=== PATIENT | male | born 1945 | race Caucasian/White ===

== ENCOUNTER → 2016-11-12 | Outpatient (CLI) | payer MEDICARE ==
[~2016-11-12] MED LIST: ACETAMINOPHEN; ALPRAZOLAM0.25 MG; AMLODIPINE5 MG PO; ASPIRIN81 M1; ATENOLOL25 MG; CELEXA20 MG; CRESTOR40 MG; DOXYCYCLINE100 M3 PO; GABAPENTIN300 MG; LISINOPRIL/HCTZ1 TA3 PO; MULTIVITAMIN1 CTB; OMEPRAZOLE20 MG; PREDNICOT20 MG PO; PREDNISONE10 MG PO; PROVENTIL0.09 MG/A1 INH; RANITIDINE HCL150 M1 PO; WARFARIN4 MG PO
== END | disposition home or self-care (01) ==
LOC: CARD 01:05
DX: I08.1 Rheumatic disorders of both mitral and tricuspid valves (principal); I25.10 Atherosclerotic heart disease of native coronary artery without angina pectoris; I48.92 Unspecified atrial flutter

== ENCOUNTER 2017-01-11 11:13 | Inpatient (IN) | payer OTHER, MEDICARE ==
[~2017-01-11] VITALS: Ht 172.7 cm; Wt 99.1 kg
[~2017-01-11 11:13] MED LIST changes: -ATENOLOL25 MG; +ATENOLOL25 MG PO
[2017-01-11 11:41] VITALS: BP 136/82
[2017-01-11 11:54] LABS: BILIRUBIN NEGATIVE (NEGATIVE); BLOOD NEGATIVE (NEGATIVE); CLARITY CLEAR (CLEAR); COLOR YELLOW (YELLOW); GLUCOSE NEGATIVE (NEGATIVE); KETONE NEGATIVE (NEGATIVE); LEUKO ESTERASE NEGATIVE (NEGATIVE); NITRITE NEGATIVE (NEGATIVE); SPECIFIC GRAVITY <= 1.005 (1.005-1.030); UROBILINOGEN 0.2 E.U./dl (0.2-1.0)
[2017-01-11 12:04] LABS: WBC 0-2 wbc/hpf (0-5)
[2017-01-11 12:23] LABS: BASO # 0.1 10*3/uL (0.0-0.1); BASO % 0.6 % (0.0-1.0); EOS # 0.4 10*3/uL (0.0-0.4); EOS % 3.7 % (1.0-4.0); HEMATOCRIT 38.9 % (42.0-52.0); HEMOGLOBIN 13.3 g/dl (14.0-18.0); LYMPH # 1.3 10*3/uL (1.3-4.4); MEAN CELL VOLUME 91.3 fl (80.0-94.0); MEAN CORPUSCULAR HGB 31.2 pg (27.0-31.0); MEAN CORPUSCULAR HGB CONC 34.2 g/dl (33.0-37.0); MEAN PLATELET VOLUME 9.3 fl (9.6-12.3); MONO # 1.2 10*3/uL (0.1-1.0); MONO % 13.1 % (3.0-9.0); NEUT # 6.4 10*3/uL (2.3-7.9); PLATELET COUNT AUTOMATED 204 10*3/uL (130-400); RED BLOOD COUNT 4.26 10*6/uL (4.50-5.90); RED CELL DISTRI WIDTH 13.2 % (0-14.5); WHITE BLOOD COUNT 9.4 10*3/uL (4.8-10.8)
[2017-01-11 12:32] LABS: ACT PARTIAL THROMBO TIME 34.4 SECONDS (20.8-31.5); INTERNATIONAL NORM RATIO 2.5 (2.0-3.5)
[2017-01-11 12:45] LABS: ALBUMIN 3.5 gm/dl (3.1-4.5); ALKALINE PHOSPHATASE 93 U/L (45-117); BUN 14 mg/dl (7-24); CHLORIDE 104 mmol/L (98-107); CREATININE 0.85 mg/dL (0.70-1.30); LIPASE 128 U/L (73-393); MAGNESIUM 2.1 mg/dL (1.5-2.1); SGOT/AST 19 IU/L (3-35); SGPT/ALT 27 U/L (12-78); SODIUM 137 mmol/L (136-145); TOTAL PROTEIN 7.4 gm/dL (6.4-8.2)
[2017-01-11 12:48] LABS: TROPONIN I < 0.015 ng/ml (<0.045)
--- NOTE | 2017-01-11 13:02 | NUR ---
REPORT CALLED. PENDINGTRANSPORT C/T PATIENT HAVING A CT ORDERED STAT. NURSE NOTFIED.
--- NOTE | 2017-01-11 14:00 | NUR ---
A 71, admitted to , under the services of SHANE Jules DO with a diagnosis of PNEUMONITIS,DYSPNEA ON EXERTION AND HEMOPTYSIS. Chief complaint is SHORTNES OF BREATH. Patient arrived via bed from ER. Monitor applied. Initial assessment completed. Vital signs taken and recorded. SHANE JULES DO notified of admission to the unit. Orders received. See assessment for past medical history, medications and allergies. Patient and/or family oriented to unit. [facility] visitation policy reviewed. Clothing/patient valuable form completed. ASSESSMENT COMPLETE. SKIN INTACT WITH NO WOUNDS. PT DECLINES FLU SHOT THIS VISIT. PNEUMONIA VACCINATION CURRENT. HOME MEDICATIONS VERIFIED WITH LIST PROVIDED BY PATIENT FROM [facility]. WILL NOTIFY DR HOFFMAN. KAR PHILLIPS
[2017-01-11] MEDS ORDERED: LOPRESSOR25 MG PO (14:06)
--- NOTE | 2017-01-11 14:55 | NUR ---
SPOKE TO DR PAPPAS AND INFORMED HIM THAT PATIENTS HOME MEDICATIONS ARE VERIFIED.
[2017-01-11 16:00] VITALS: BP 144/88
--- NOTE | 2017-01-11 19:50 | NUR ---
PT. AWAKE, ALERT AND ORIENTED X3. PT. IN BED AT THIS TIME. PT. CURRENTLY DENIES CP, SOB, PAIN. CALL LIGHT WITHIN REACH, BED IN LOWEST POSITION, WHEELS LOCKED. SEE SHIFT ASSESSMENT.
[2017-01-11 20:07] VITALS: BP 144/70
[2017-01-12] VITALS: BP 134/65
--- NOTE | 2017-01-12 06:03 | NUR ---
PT. WAS FEELING "JITTERY" PRIOR TO SOLU-MEDROL ADM. PT. IS PRE-DIABETIC, CHECKED PTS. BG. BG READING 242, NOTIFIED DR. SINGH AT THIS TIME. DR. SINGH STATED HE WILL PUT IN A SLIDING SCALE FOR COVERAGE.
[2017-01-12 06:07] LABS: BASO % 0.1 % (0.0-1.0); HEMATOCRIT 37.8 % (42.0-52.0); LYMPH % 8.1 % (27.0-41.0); MEAN CELL VOLUME 89.8 fl (80.0-94.0); MEAN CORPUSCULAR HGB 30.9 pg (27.0-31.0); MEAN CORPUSCULAR HGB CONC 34.4 g/dl (33.0-37.0); MEAN PLATELET VOLUME 9.5 fl (9.6-12.3); MONO # 0.7 10*3/uL (0.1-1.0); MONO % 5.7 % (3.0-9.0); NEUT % 85.5 % (47.0-73.0); PLATELET COUNT AUTOMATED 217 10*3/uL (130-400); RED BLOOD COUNT 4.21 10*6/uL (4.50-5.90); RED CELL DISTRI WIDTH 12.9 % (0-14.5); WHITE BLOOD COUNT 12.9 10*3/uL (4.8-10.8)
--- NOTE | 2017-01-12 06:23 | NUR ---
DR. SINGH CALLED AT THIS TIME D/T PTS. NERVOUSNESS WITH MEDS. DR. SINGH SAID HE'LL BE UP SHORTLY.
[2017-01-12 06:39] LABS: BUN 18 mg/dl (7-24); CHLORIDE 99 mmol/L (98-107); CHOLESTEROL 126 mg/dL (<200); CREATININE 0.99 mg/dL (0.70-1.30); HDL CHOLESTEROL 48 mg/dl (40-60); LDL CHOLESTEROL 64 mg/dL (9-159); MAGNESIUM 2.1 mg/dL (1.5-2.1); POTASSIUM 4.1 mmol/L (3.5-5.1); SODIUM 133 mmol/L (136-145); TRIGLYCERIDES 68 mg/dl (<150); VLDL CHOLESTEROL 14 mg/dL (6-40)
[2017-01-12 06:46] LABS: THYROID STIM HORMONE (HS) 0.489 uIU/ml (0.358-4.75)
--- NOTE | 2017-01-12 06:50 | NUR ---
PT. REFUSING SOLUMEDROL, MUCINEX, AND THE INSULIN SLIDING SCALE. PT. STATED HE IS PLANNING ON LEAVING TODAY. DR. CONTRERAS AWARE, ADVISED TO PUT MEDS PT. REFUSED AT THIS TIME.
[2017-01-12 06:58] LABS: ACT PARTIAL THROMBO TIME 32.2 SECONDS (20.8-31.5); INTERNATIONAL NORM RATIO 2.3 (2.0-3.5)
[2017-01-12 07:01] LABS: VITAMIN D, 25-HYDROXY 36.1 ng/mL (30-100)
[2017-01-12 08:00] VITALS: BP 148/54
--- NOTE | 2017-01-12 09:00 | NUR ---
Oxyhydrogen Welder in to talk to patient. Patient states lives at home with . There are few steps in the home. Physician: [facility]: [facility] Home health services: none Patient's level of ADLs: INDEPENDENT Patient has working utilities: all workibg DME: none Follow-up physician's appointment after d/c: will be made by hospitalist ronni director upon discharge Does patient want to access PORTAL?: no Discharge plan discussed with patient, present, patient lives at home wtih , states he is independent in adls and ambualtion, patient states he will be going home when able and denies any home needs. HANK WILDE
[2017-01-12] MEDS ORDERED: LEVAQUIN750 M1 PO (09:45)
--- NOTE | 2017-01-12 11:14 | NUR ---
Discharge instructions reviewed with patient/family. Patient receptive and verbalizes understanding. Follow-up care arranged. Written instructions given to patient/family. CHRISTEN GALLARDO
== END 2017-01-12 11:14 | disposition home or self-care (01) | DRG 194 ==
LOC: ED 11:13 → 4E 12:54 → EDHOLD 12:54 → 4E 13:30
PROVIDERS: Emergency Medicine; Internal Medicine Nephrology; ADMIT Internal Medicine
DX: J18.9 Pneumonia, unspecified organism (principal); J45.901 Unspecified asthma with (acute) exacerbation; I48.1 Persistent atrial fibrillation; I11.0 Hypertensive heart disease with heart failure; I50.22 Chronic systolic (congestive) heart failure; I25.810 Atherosclerosis of coronary artery bypass graft(s) without angina pectoris; R04.2 Hemoptysis; D64.9 Anemia, unspecified; J20.9 Acute bronchitis, unspecified; G47.33 Obstructive sleep apnea (adult) (pediatric); E66.9 Obesity, unspecified; R73.03 Prediabetes; K76.0 Fatty (change of) liver, not elsewhere classified; Z99.89 Dependence on other enabling machines and devices; Z95.1 Presence of aortocoronary bypass graft; Z79.01 Long term (current) use of anticoagulants; Z88.0 Allergy status to penicillin; Z79.899 Other long term (current) drug therapy; Z79.82 Long term (current) use of aspirin; Z87.891 Personal history of nicotine dependence; Z82.49 Family history of ischemic heart disease and other diseases of the circulatory system; Z68.33 Body mass index [BMI] 33.0-33.9, adult

== ENCOUNTER 2017-05-18 08:36 | Emergency (ER) | payer MEDICARE, OTHER ==
[~2017-05-18] VITALS: Wt 99.8 kg
--- NOTE | ~2017-05-18 | EKG ---
[place], [place] ELECTROCARDIOGRAM REPORT NAME: TWYLA HADLEY UNIT #: [id number] ROOM: DOCTOR: BUDDY SOMERS MD BIRTHDATE: [birth year] DOS: 05/18/2017 TIME: 0900 hours. Atrial flutter with the rate of 220 beats per minute and variable AV conduction. Ventricular rate is 77 beats per minute. Consider an old anteroseptal myocardial infarction. Nonspecific T-wave change in lateral leads. An abnormal ECG. No previous tracing is available for comparison. BUDDY SOMERS MD CM:EKGRPT:ELECTROCARDIOGRAM REPORT [id number] BUDDY SOMERS MD
[~2017-05-18 08:36] MED LIST changes: +LEVAQUIN750 M1 PO; +LOPRESSOR25 MG PO
[2017-05-18 09:16] LABS: BASO % 0.5 % (0.0-1.0); EOS # 0.1 10*3/uL (0.0-0.4); EOS % 1.5 % (1.0-4.0); HEMATOCRIT 39.8 % (42.0-52.0); LYMPH # 1.2 10*3/uL (1.3-4.4); MEAN CELL VOLUME 89.2 fl (80.0-94.0); MEAN CORPUSCULAR HGB 31.4 pg (27.0-31.0); MEAN CORPUSCULAR HGB CONC 35.2 g/dl (33.0-37.0); MONO # 0.5 10*3/uL (0.1-1.0); MONO % 8.9 % (3.0-9.0); NEUT # 4.1 10*3/uL (2.3-7.9); NEUT % 68.4 % (47.0-73.0); PLATELET COUNT AUTOMATED 222 10*3/uL (130-400); RED BLOOD COUNT 4.46 10*6/uL (4.50-5.90); RED CELL DISTRI WIDTH 12.9 % (0-14.5); WHITE BLOOD COUNT 6.1 10*3/uL (4.8-10.8)
[2017-05-18 09:34] LABS: ALBUMIN 3.7 gm/dl (3.1-4.5); ALKALINE PHOSPHATASE 86 U/L (45-117); BUN 17 mg/dl (7-24); CHLORIDE 98 mmol/L (98-107); CREATININE 0.82 mg/dL (0.70-1.30); POTASSIUM 4.1 mmol/L (3.5-5.1); SGOT/AST 30 IU/L (3-35); SGPT/ALT 55 U/L (12-78); SODIUM 133 mmol/L (136-145); TOTAL PROTEIN 7.3 gm/dL (6.4-8.2)
[2017-05-18 10:11] VITALS: BP 146/66
[2017-05-18 11:02] LABS: BILIRUBIN NEGATIVE (NEGATIVE); BLOOD NEGATIVE (NEGATIVE); CLARITY CLEAR (CLEAR); COLOR YELLOW (YELLOW); GLUCOSE NEGATIVE (NEGATIVE); KETONE NEGATIVE (NEGATIVE); LEUKO ESTERASE NEGATIVE (NEGATIVE); NITRITE NEGATIVE (NEGATIVE); PH 5.5 (5.0-9.0); UROBILINOGEN 0.2 E.U./dl (0.2-1.0)
[2017-05-18 11:17] LABS: RBC 0-2 rbc/hpf (0-2); WBC 0-2 wbc/hpf (0-5)
[2017-05-18] MEDS ORDERED: GOOD NEIGHBOR M25 M1 PO (11:56)
[2017-05-18] MEDS ORDERED: ZOFRAN4 MG PO (11:56)
== END 2017-05-18 11:51 | disposition home or self-care (01) ==
LOC: ED 08:36
PROVIDERS: Family Medicine
DX: H83.09 Labyrinthitis, unspecified ear (principal); I48.91 Unspecified atrial fibrillation; I25.10 Atherosclerotic heart disease of native coronary artery without angina pectoris; E66.9 Obesity, unspecified; J45.901 Unspecified asthma with (acute) exacerbation; I50.20 Unspecified systolic (congestive) heart failure; Z68.30 Body mass index [BMI] 30.0-30.9, adult; Z79.82 Long term (current) use of aspirin

== ENCOUNTER 2018-06-23 10:14 | Inpatient (IN) | payer OTHER, MEDICARE ==
[~2018-06-23] VITALS: Ht 170.2 cm; Wt 88.9 kg
[2018-06-23] VITALS (7 sets, daily range): BP systolic 90–132; BP diastolic 51–62
--- NOTE | ~2018-06-23 | CON ---
[place], [place] REPORT OF CONSULTATION NAME: TWYLA HADLEY UNIT #: [id number] ROOM: 426 DOCTOR: GUILLERMINA ROME MDLORRI BIRTHDATE: [birth year] DOS: 06/24/2018 PULMONARY CRITICAL CARE EVALUATION AND MANAGEMENT CONSULTATION REQUESTED BY: Hospitalist service. REASON FOR CONSULTATION: For assessment of COPD. HISTORY OF PRESENT ILLNESS: This 73-year-old white male patient who has been unknown to me, has been followed up in [facility]. The patient has a known history of obstructive sleep apnea disorder and also reported as a pulmonary disease, possible chronic obstructive pulmonary disease. He stated that he had been prescribed inhaler from the [facility], which has not been used by the patient, but he does use his CPAP at nighttime for the past 5 years, presented to the hospital and hospitalized as he has been experiencing progressive increased shortness of breath occurring at home. Shortness of breath has been noted gradually progressive for this patient. He has been also complaining of some cough without any sputum expectoration. The patient denies symptoms of wheezing. Denies symptoms of chest pain, some chest tightness were reported. The pain was still described for this patient in the mid portion of the chest, which was present across the chest for the patient without radiation and mild as per the patient. He has been assessed in the Emergency Room also noted with mildly abnormal troponin currently admitted to the hospital, the patient had a chest x-ray was also suggestive of evidence of pneumonia per report from the Emergency Room. He has been currently resting comfortably in the hospital in the Intensive Care Unit. REVIEW OF SYSTEMS: CONSTITUTIONAL: Fatigue and tiredness noted without any symptoms of fever or chills. EYES: Denies burning, redness, or tenderness. EARS, NOSE, THROAT SYMPTOMS: Denies sore throat, hoarseness, otalgia, postnasal drainage or epistaxis. CARDIOVASCULAR: Denies angina pain, noted edema of the lower extremities. GENITOURINARY: No dysuria, urinary incontinence or hematuria. MUSCULOSKELETAL: Denies any joint pain, redness, or tenderness. SKIN: Denies lesions or rashes. CENTRAL NERVOUS SYSTEM: No dizziness, headache, diplopia, syncopal episode for the patient or seizures. Remaining systems were reviewed. They were noted all negative. PAST MEDICAL HISTORY: 1. Coronary artery disease. 2. Essential hypertension. 3. Acute congestive heart failure, cardiomyopathy, ejection fraction of 45%. 4. The patient with general anxiety disorder. 5. Hyperlipidemia. 6. Nonalcoholic fatty liver disease. 7. Obesity. [place], [place] REPORT OF CONSULTATION NAME: TWYLA HADLEY UNIT #: [id number] ROOM: 426 DOCTOR: GUILLERMINA ROME MD,LORRI BIRTHDATE: [birth year] 8. Obstructive sleep apnea disorder. 9. Chronic obstructive pulmonary disease. SOCIAL HISTORY: The patient is and lives at home, has 3 children. Smoking reported as a pack of cigarettes per day, started as a teenager. The patient stated not smoking cigarettes for 20 years. FAMILY HISTORY: Reported as hypertension in both parents. Mother at age 53 years due to complication of myocardial infarction. HOME MEDICATIONS: Listed as aspirin, Norvasc, Celexa, hydrochlorothiazide, Imdur, lisinopril, metformin, multivitamin, Crestor, Coumadin and sublingual p.r.n. nitroglycerin. CURRENT MEDICATIONS: Administered on this hospitalization for use of Lipitor, citalopram, aspirin, lisinopril, Imdur, hydrochlorothiazide, amlodipine, Protonix, Mucinex, Coumadin, p.r.n. nitroglycerin, Lovenox 1 mg/kg body weight dose as 90 mg subcutaneous b.i.d., DuoNeb q.4h., IV Rocephin, Zithromax, Tamiflu 75 mg b.i.d. and other p.r.n. medications. DRUG ALLERGIES: Noted with no known drug allergies. PHYSICAL EXAMINATION: GENERAL: This is a 73-year-old male who has been currently noted to be awake and alert this morning of assessment. Height of 5 feet 7 inches, weight of 201 pounds, BMI 31.5. VITAL SIGNS: The patient's temperature 101.7 degrees Fahrenheit noted on admission. The respiratory rate of 24-20. Heart rate of 82-109, blood pressure 100/62 on admission, later 120/64. Pulse oxygen saturation recorded as 89% on nasal cannula with 8 liters later on 93% saturation. Intake since admission for this patient noted positive fluid balance of 3.12 liters. HEENT: Head is atraumatic. Eyes, nonicterus. NECK: Supple. CARDIOVASCULAR: S1, S2 audible. LUNGS: Moderate diffuse expiratory wheezing with crackles in the both lung bases. ABDOMEN: Soft with moderate obesity. Bowel sounds present. EXTREMITIES: Shows 2+ pitting edema, bilateral lower extremities. LABORATORY DATA: The labs on this patient, lactic acid on admission 5.1, followup 7.1 and then further elevated. PT/PTT for the patient were noted as INR 1.7, PTT 36. CBC for the patient yesterday in the Emergency Room, WBC count 3.6, hemoglobin of 13.9, hematocrit 41.5, platelet count 141,000. The CMP that was done on 06/23/2018 for the patient, BUN 24, creatinine normal, glucose 146. Sodium 132, AST 49. Troponin 1.36. The influenza B, nasal washing antigens were negative. The arterial blood gas, pH of 7.34, pCO2 of 27, pO2 80.4 on 6 liters nasal canula yesterday was also noted. PT/INR for the patient this morning recorded as 4.5, which is about the therapeutic range. The BMP of patient this morning, BUN normal, creatinine normal, sodium 132. CBC this morning for the patient, WBC count 6.9, hemoglobin 12.8, platelet count was [place], [place] REPORT OF CONSULTATION NAME: TWYLA HADLEY UNIT #: [id number] ROOM: 426 DOCTOR: GUILLERMINA ROME MD,LORRI BIRTHDATE: [birth year] normal. Chest x-ray that was done for this patient, one-view was reviewed from the Emergency Room noted basilar area of atelectasis or infiltration. CT scan of the chest that was done for this patient, findings were reviewed personally for the patient shows multiple areas of ground glass opacity noted in the lungs including some area of consolidation as well with significant pleural distribution noted most of the infiltration except the posterior subsegment of the left upper lobe noted ground glass opacity as well as area of consolidation with the air bronchogram. There was no evidence of significant pleural fluid, very small pleural fluid noted bilaterally. Because of lack of the IV contrast, does limit the assessment of the mediastinal structure. Lymph node of the patient, which was noted with a short dimension lymph node at the mediastinum of 1.5 cm in size. IMPRESSION: 1. The patient who has been currently admitted to the hospital noted with acute pneumonia, which were noted multilobar for the patient mild abnormal LFTs for this patient for leukopenia. 2. Acute exacerbation of chronic obstructive pulmonary disease was also noted for the patient with current assessment. 3. Acute congestive heart failure with systolic dysfunction as well. Rule out Legionella pneumonia for the patient as well. 4. Rule out cryptogenic organizing pneumonia for the patient, current appearance of the CT scan of the chest. 5. The patient with history of obstructive sleep apnea disorder. 6. Severe acute hypoxemic respiratory failure secondary to the above. 7. Coumadin toxicity for the patient most likely second drug interaction. 8. Permanent atrial fibrillation was also noted for the patient with the relative bradyarrhythmia highly suggestive of Legionella pneumonia in the differential diagnosis. PLAN OF MANAGEMENT: The patient has been started on IV Levaquin for this patient at 750 mg daily. Urine for Legionella antigen and strep antigen will be ordered. Ordered sputum for Gram stain and culture. We assessed the arterial blood gases. Intravenous Lasix 40 mg will be given at least 1 dose. Start the patient on Solu-Medrol for acute exacerbation of chronic obstructive pulmonary disease. Continuation in influenza infection until the molecular assessment for the nasal washing will be available. Continuation of the other therapy, plan of management. Additional treatment changes will be made based on progression of illness. Supportive care, other therapy, plan of management. Additional changes continued to be made based on progression of illness. The patient already getting treatment for possibility of non-ST segment elevation myocardial infarction with the Lovenox therapeutic dose that will be continued. Other additional treatment changes will be made based on progression of the illness. The BiPAP for the patient could be ordered for the patient to assess portal respiratory failure, management. Continue the management of the patient in the Intensive Care Unit settings. Usual care, other supportive plan of management, care plan and treatment. In case of progressive worsening of the respiratory failure, the patient required intubation and mechanical ventilation. Because of the INR, which is noted supratherapeutic, consider discontinuation of the subcutaneous Lovenox. Adjust the dose of the Coumadin. I will leave this to [place], [place] REPORT OF CONSULTATION NAME: LEONIETWYLA UNIT #: [id number] ROOM: 426 DOCTOR: LORRI CARTER MD BIRTHDATE: [birth year] the Cardiology service of the patient for that reason. Other supportive plan of management with additional treatment changes will be ordered based on the progression of the illness. Total time in pulmonary critical care evaluation and management was 40 minutes. LORRI SARMIENTO MD CM:CONSTR:REPORT OF CONSULTATION 1216 07/11/18 1047 interface
--- NOTE | ~2018-06-23 | PR ---
[place], [place] PROGRESS NOTE NAME: TWYLA HADLEY UNIT #: [id number] ROOM: 426 DOCTOR: GUILLERMINA ROME MD,LORRI BIRTHDATE: [birth year] DOS: 06/27/2018 PULMONARY PROGRESS NOTE SUBJECTIVE: The patient has been noted comfortable at this time, sitting on the chair, using oxygen supplementation, Optiflow of oxygen was 60% oxygen this morning. Denies symptoms of chest pain, fever, or chill. Use of BiPAP last night. Denies symptoms of sputum expectoration. Cough has been noted. He is afebrile as well. OBJECTIVE: VITAL SIGNS: Vital signs of the patient, which were recorded showed the temperature noted normal, respiratory rate is 14, heart rate is 90, and blood pressure is 132/65-126/72. Pulse oxygen saturation recorded as 97% with the BiPAP and with 60% Optiflow as 97% saturation and as the oxygen supplementation was decreased to 50%, the patient was monitored and the oxygen saturation maintained above 92%-93%. HEENT: Examination shows head was atraumatic. Eyes nonicterus. NECK: Supple. CARDIOVASCULAR SYSTEM: S1, S2 is audible. LUNGS: Noted decreased breath sounds with occasional crackles. No wheezing. ABDOMEN: Soft, nontender. Bowel sounds present. EXTREMITIES: No new changes. MUSCULOSKELETAL: Noted without any acute deformities. CENTRAL NERVOUS SYSTEM: Noted without any acute focal neurologic deficit. Cranial nerves 2-12 intact. LABORATORY DATA: CBC, WBC count was 14.2, hemoglobin was 12.7, and platelet count was normal. The CMP of the patient this morning, BUN is 31, creatinine is normal. Sodium is 132. Albumin is 2.5. AST and ALT mildly abnormal. PT and INR was noted as 4.7, improving, but still noted in the above therapeutic range. IMPRESSION: 1. The patient with resolving acute suspected Legionella pneumonia with acute severe hypoxemic respiratory failure. 2. Abnormal LFTs secondary to the above. 3. Hyponatremia still persistent. 4. Atrial fibrillation noted current controlled rate with mild Coumadin toxicity without any evidence of bleeding. PLAN OF TREATMENT: Continuation of the bronchodilators and oxygen supplementation. Monitor pulse ox saturation. Obtain arterial blood gas about an hour to determine the pO2 level. Also, obtain a chest x-ray to assess the progression of the current pulmonary infiltration and acute pneumonia. Any change if necessary will be ordered after the assessment of the current requested new workup. [place], [place] PROGRESS NOTE NAME: TWYLA HADLEY UNIT #: [id number] ROOM: 426 DOCTOR: LORRI CARTER MD BIRTHDATE: [birth year] LORRI SARMIENTO MD CM:PNTRANS [id number] LORRI ROME MD 07/11/18 1048 interface
--- NOTE | ~2018-06-23 | PR ---
[place], [place] PROGRESS NOTE NAME: TWYLA HADLEY UNIT #: [id number] ROOM: [facility] DOCTOR: GUILLERMINA ROME MD,LORRI BIRTHDATE: [birth year] DOS: 06/25/2018 PULMONARY/CRITICAL CARE EVALUATION AND MANAGEMENT SUBJECTIVE: The patient remains in the Intensive Care Unit. He has been noted with gradual deterioration of the respiratory status with increased oxygen requirement. The patient was started on BiPAP for further medical management of severe progressive hypoxia. He has been started on Optiflow oxygen supplementation this morning as well to have the patient eat. He has been noted with a cough. There was no sputum expectoration. Denies symptoms of chest pain, fever, or chills. The patient has not been reported with any symptoms of nausea, vomiting, diarrhea, or any abdominal pain. He was still noted with edema of the lower extremities. He was given IV Lasix 1 dose yesterday as well. He has not been reported with any symptoms of hemoptysis. The patient denies any edema of the lower extremities or hematuria as well. Review of systems otherwise is completed and remains negative, except generalized weakness and fatigue. There are no symptoms of headache or diplopia reported. OBJECTIVE: GENERAL: The patient is currently sitting on the chair, using Optiflow oxygen supplementation with high-flow nasal cannula. With 90% of oxygen, the oxygen saturation recorded as 91% and dropped down to 87% with only mild activity, transfer from bed to the chair. VITAL SIGNS: Temperature noted as T-max of 100.6-degree Fahrenheit, afebrile. Respiratory rates range between 21-18, heart rate of 81-104, blood pressure of 160-134/72. The pulse oxygen saturation was recorded as ranging between 85%-96%. HEENT: Examination shows head is atraumatic. Eyes nonicterus. NECK: Supple. CARDIOVASCULAR: S1 and S2 audible. LUNGS: Noted with decreased breath sounds in the lungs bilaterally with crackles on the left side. ABDOMEN: Soft, nontender. Bowel sounds are present. EXTREMITIES: Mild edema still noted. VISIBLE SKIN: No lesions or rashes. CENTRAL NERVOUS SYSTEM: Cranial nerves 2 through 12 are intact. LABORATORY AND DIAGNOSTIC DATA: Assessed in the last 24 hours. Arterial blood gas that was done yesterday, pH of 7.44, pCO2 of 31, pO2 of 48 on eight liters high-flow nasal cannula. The arterial blood gas that was done this morning, 65% oxygen with BiPAP, pH of 7.51, pCO2 of 32.9, pO2 of 73.8. Culture of the sputum, preliminarily normal thania, final culture results are pending. Gram stain, many white blood cells, moderate epithelial cells, moderate Gram-positive cocci in pairs and chains, and a few Gram-positive cocci in clusters. CBC today: WBC count normal, hemoglobin 12.8, platelet count normal. PT/INR was noted as 5.9, which is still elevated. BMP this morning: Normal creatinine, BUN 25, glucose 211, sodium 133, and phosphorus 1.7. Echocardiogram that was completed yesterday, 06/24/2018, reported by the Cardiology Services Dr. Rollins [place], [place] PROGRESS NOTE NAME: TWYLA HADLEY UNIT #: [id number] ROOM: [facility] DOCTOR: LACEY CARTER MDM BIRTHDATE: [birth year] as findings of mild reduction in left ventricular ejection fraction of 40-45%. Severe concentric LVH was also reported. Unable to assess the pulmonary arterial pressures. The left ventricular ejection fraction was reported partially improved as compared to the echocardiogram 07/13/2016 from 40% to currently noted 45-50%. Blood culture on 06/23/2018 was noted as negative. Urine for Legionella antigen and strep antigen was sent to the lab with pending results. Chest x-ray that was done 1 view this morning was noted as worsening of the infiltration of the lungs, especially in the left side and also in the right upper lung. IMPRESSION: The patient who has been noted with: 1. Severe progressive acute hypoxic respiratory failure at this time, secondary to suspected acute pneumonia with differential of Legionella pneumonia. 2. The patient with hypophosphatemia as well, most likely due to the refeeding syndrome. 3. The patient with abnormal coagulation with atrial fibrillation, currently receiving the anticoagulation. 4. Mild cardiomyopathy. 5. The patient with moderate obesity as well. 6. Mild hyponatremia is also noted with azotemia as well. Hyponatremia is related to the current pulmonary infection, including consideration for Legionella and syndrome of inappropriate antidiuretic hormone secretion as well. PLAN OF TREATMENT: Supplementation of phosphorus with Neutra-Phos should suffice. Continuation of albuterol sulfate. Continue bronchodilators. Continuation of Solu-Medrol for acute exacerbation of COPD that was noted yesterday, but improved wheezing today. Continuation of antibiotics, Rocephin 2 grams daily and Levaquin. Follow the respiratory status as well. Empirical management will be continued for acute influenza pneumonia until the PCR results will be available. Rapid antigen testing from the nasal passage was noted as negative. Titrate oxygen supplementation, maintain pulse oxygen saturation 92% or greater. The patient's condition remains critical at this time. If the respiratory status further worsens, he may require intubation and mechanical ventilation. This has been discussed with the patient and the patient's spouse in detail. The patient was recommended use of BiPAP minimum at nighttime since he does not wish to put back on and can still use the oxygen supplementation Optiflow as previously. Other supportive plan of management, other additional treatment will be made based on progression of the illness. One more dose of Lasix was ordered. Coumadin toxicity still needs to be monitored. No intervention planned unless the patient has any kind of bleeding. The patient will require intervention for that at that time. Usual care and all other treatments as previously ordered. Total time in pulmonary/critical care evaluation and management was 45 minutes. [place], [place] PROGRESS NOTE NAME: TWYLA HADLEY A UNIT #: [id number] ROOM: [facility] DOCTOR: LORRI CARTER MD BIRTHDATE: [birth year] LORRI SARMIENTO MD CM:PNTRANS [id number] LORRI ROME MD 06/26/18 0800 interface
--- NOTE | ~2018-06-23 | EKG ---
[place], [place] ELECTROCARDIOGRAM REPORT NAME: TWYLA HADLEY UNIT #: [id number] ROOM: [facility] DOCTOR: MASOOD DRAFT REPORT BIRTHDATE: [birth year] [facility] Test Date: 2018-06-23 Test Time: 17:18:11 Pat Name: TWYLA HADLEY Department: Room: [facility] Gender: M [employer] Dealer: Leticia Stephenson : 1945 Requested By: JAYDEN MILAN Order Number: [id number] Reading MD: Demetria Rollins MD Measurements Intervals [place] Rate: 84 P: 39 CO: 206 QRS: 41 QRSD: 104 T: 2 QT: 408 QTc: 483 Interpretive Statements Sinus rhythm Low voltage, precordial leads Probable anteroseptal infarct, old Minimal ST depression, anterior leads No previous ECG available for comparison Electronically Signed On 06-24-2018 15:30:52 PDT by Demetria Rollins MD CM:EKGRPT:ELECTROCARDIOGRAM REPORT [id number] 1530 JAYDEN MILLER DRAFT REPORT JAYDEN MILAN DO
--- NOTE | ~2018-06-23 | PR ---
[place], [place] PROGRESS NOTE NAME: TWYLA HADLEY UNIT #: [id number] ROOM: 426 DOCTOR: GUILLERMINA ROME MD,LORRI BIRTHDATE: [birth year] DOS: 06/29/2018 PULMONARY PROGRESS NOTE SUBJECTIVE: The patient noted comfortable at this time, sitting on the chair this morning. He was still getting oxygen supplementation, high flow nasal cannula, appeared to be quite comfortable. Denies symptoms of chest pain, fever or chills. Coughing has been noted mild. OBJECTIVE: VITAL SIGNS: Normal temperature, respiratory rate 20, heart rate 98, blood pressure 112/65. Pulse ox saturation on 2 liters nasal cannula 94% saturation. HEENT: Examination shows head was atraumatic. Eyes nonicterus. NECK: Supple. CARDIOVASCULAR: S1, S2 audible. LUNGS: The patient without wheeze or crackles. ABDOMEN: Soft, nontender. Bowel sounds present. EXTREMITIES: No acute edema. IMPRESSION: Resolving acute pneumonia with legionella with acute influenza infection as well, improving severe acute hypoxemic respiratory failure as well and exacerbation of chronic obstructive pulmonary disease. PLAN OF MANAGEMENT: The patient will be continued on oxygen supplementation titration once the patient reached the level of 4 liters of less nasal cannula oxygen. Consideration for home discharge. He has been getting treatment for anticoagulation. INR today noted 1.7, going towards the therapeutic range. Plan of care, continuation of the antibiotic, which has been switched to oral. The patient has Levaquin. Solu-Medrol dose has been decreased to once a day as well. Continue anticoagulation. Potential discharge in the morning. Chest x-ray was ordered to be done in the morning to reassess. LORRI SARMIENTO MD CM:PNTRANS [phone] LORRI ROME MD 06/30/18 0124 interface
--- NOTE | ~2018-06-23 | EKG ---
[place], [place] ELECTROCARDIOGRAM REPORT NAME: TWYLA HADLEY UNIT #: [id number] ROOM: [facility] DOCTOR: MASOOD DRAFT REPORT BIRTHDATE: [birth year] [facility] Test Date: 2018-06-23 Test Time: 13:27:35 Pat Name: TWYLA HADLEY Department: Room: [facility] Gender: M Tax Examiner: : 1945 Requested By: JAYDEN MILAN Order Number: [id number] Reading MD: Demetria Rollins MD Measurements Intervals [place] Rate: 79 P: 39 PA: 216 QRS: 40 QRSD: 101 T: 12 QT: 421 QTc: 483 Interpretive Statements Sinus rhythm Anterior infarct, old No previous ECG available for comparison Electronically Signed On 06-24-2018 8:55:22 PDT by Demetria Rollins MD CM:EKGRPT:ELECTROCARDIOGRAM REPORT [id number] JAYDEN MILLER DRAFT REPORT JAYDEN MILAN DO
--- NOTE | ~2018-06-23 | PR ---
[place], [place] PROGRESS NOTE NAME: TWYLA HADLEY UNIT #: [id number] ROOM: 426 DOCTOR: LAMAR TAYLOR MD BIRTHDATE: [birth year] DOS: 06/27/2018 REASON FOR VISIT: Atrial fibrillation, elevated troponin.. SUBJECTIVE: The patient denies any chest pains. His breathing is much better. No PND. No orthopnea. No palpitations. No nausea, vomiting. Dr. Wilson is following his pulmonary condition.. REVIEW OF SYSTEMS: Review of 10 systems negative except as mentioned above. RHYTHM STRIPS: The patient is in fibrillation with controlled ventricular rate. OBJECTIVE:: VITAL SIGNS: Blood pressure 132/65, pulse 90, respiration rate is 14, weight 90 kilos. GENERAL: Alert, comfortable, in no acute distress. The patient is wearing high flow oxygen. HEENT: Pupils are round and equal. No jaundice. NECK: Supple. No distended neck veins. No carotid bruit. CHEST: Symmetrical, nontender. LUNGS: Few scattered rhonchi, but fair air entry bilaterally. HEART: Irregularly irregular, grade 1/6 systolic murmur. ABDOMEN: Benign, nontender. Bowel sounds normal. EXTREMITIES: Showed trace edema. Distal pulses palpable. SKIN: Warm and dry. No cyanosis. No clubbing. RECTAL: Deferred. GENITOURINARY: Deferred. MEDICATIONS: Reviewed. LABORATORY DATA: Reviewed. INR 4.7. IMPRESSION: 1. Atrial fibrillation with rapid ventricular rate, currently rate controlled. 2. Borderline elevation of troponin. No chest pains. 3. Coronary artery disease, status post bypass in , details unknown. 4. Coagulopathy. 5. Pneumonia. 6. Acute respiratory failure with hypoxia. 7. Non-morbid obesity. RECOMMENDATIONS: 1. Continue current medications. 2. Hold Coumadin since his INR is 4.7. 3. We will follow with [facility] after discharge. 4. Discussed with his who is at bedside. [place], [place] PROGRESS NOTE NAME: TWYLA HADLEY UNIT #: [id number] ROOM: 426 DOCTOR: LAMAR TAYLOR MD BIRTHDATE: [birth year] LAMAR TAYLOR MD CM:JEAN PIERRE [phone] LAMAR TAYLOR MD 06/28/18 1435 interface
--- NOTE | ~2018-06-23 | PR ---
[place], [place] PROGRESS NOTE NAME: TWYLA HADLEY UNIT #: [id number] ROOM: 426 DOCTOR: GUILLERMINA ROME MD,LORRI BIRTHDATE: [birth year] DOS: 06/30/2018 SUBJECTIVE: The patient has been noted comfortable at this time, sitting on the bed. He denies symptoms of chest pain, fever or chills. He has not been using oxygen supplementation this morning as being assessed. The coughing and other symptom patient has been improving gradually. There were no symptoms of wheezing reported by the patient. OBJECTIVE: VITAL SIGNS: For the patient which were recorded showed the temperature recorded as normal. The respiratory rate of the patient recorded as 18, heart rate 69, blood pressure 116/57. The pulse oxygen saturation, rest to room air was 91% and 3 liters as 94% saturation. HEENT: Examination shows head was atraumatic. Eyes nonicterus. NECK: Supple. CARDIOVASCULAR: S1, S2 audible. LUNGS: Without any wheezing or crackles. ABDOMEN: Soft, nontender. EXTREMITIES: Without any edema. LABORATORY DATA: The CBC that was done this morning, WBC count was 12.3, hemoglobin 13.4, hematocrit 39.1, platelet count of 211,000. BMP this morning, BUN 25. The PT/INR that was done this morning as INR 1.6. The chest x-ray shows continued improvement in the pulmonary infiltration. IMPRESSION: 1. The patient who has been currently treated with severe acute hypoxemic respiratory failure, multifactorial, possible consideration of the Legionella pneumonia with acute influenza infection as well. 2. Atrial fibrillation with rapid ventricular response improving as well. 3. Mild anemia. PLAN OF TREATMENT: No changes from the pulmonary standpoint. DISCHARGE PLANNING: Discharge planning for the patient could be started. The patient does not wish to be assessed for the home oxygen. The patient stated that even if it is ordered, she will not be using it. The risks and benefits of that has been discussed with the patient. The oxygen supplementation necessary for the patient will be a short time. From the pulmonary standpoint, the patient could be discharged anytime on oral Levaquin and tapering dose of prednisone. [place], [place] PROGRESS NOTE NAME: TWYLA HADLEY UNIT #: [id number] ROOM: 426 DOCTOR: LORRI CARTER MD BIRTHDATE: [birth year] LORRI SARMIENTO MD CM:PNTRANS [id number] LORRI ROME MD 06/30/18 1846 interface
--- NOTE | ~2018-06-23 | PR ---
[place], [place] PROGRESS NOTE NAME: TWYLA HADLEY UNIT #: [id number] ROOM: 426 DOCTOR: LAMAR TAYLOR MD BIRTHDATE: [birth year] DOS: 06/28/2018 CARDIOLOGY FOLLOWUP NOTE REASON FOR VISIT: Atrial fibrillation. SUBJECTIVE: The patient is feeling better. Denies any chest pain or shortness of breath. His breathing is much better. No PND, no orthopnea, no palpitations. No nausea, no vomiting or diarrhea. No neurologic symptoms. No genitourinary symptoms. REVIEW OF SYSTEMS: Review of 8 systems negative except as mentioned above. RHYTHM STRIPS: The patient was in atrial fibrillation with controlled ventricular rate. PHYSICAL EXAMINATION: VITAL SIGNS: Blood pressure 116/58, pulse 74, respiratory rate 20. GENERAL: Alert, comfortable, in no acute distress. HEENT: Pupils are round and equal. No jaundice. Tongue was moist and pharynx clear. NECK: Supple, no distended neck veins, no carotid bruit. CHEST: Symmetrical, nontender. LUNGS: A few scattered rhonchi. Fair air entry bilaterally. HEART: Irregularly irregular, grade 1/6 systolic murmur. ABDOMEN: Benign, nontender. Bowel sounds normal. EXTREMITIES: Showed trace edema. Distal pulses palpable. SKIN: Warm and dry. No cyanosis, no clubbing. RECTAL: Deferred. GENITOURINARY: Deferred. LABORATORY DATA AND MEDICATIONS: Reviewed. INR 2.5. IMPRESSION: 1. Atrial fibrillation with controlled ventricular rate. 2. Borderline elevation of troponin due to demand ischemia. 3. Coronary artery disease. 4. Pneumonia. 5. Coagulopathy, resolved. 6. Acute respiratory failure with hypoxia, improving. RECOMMENDATIONS: 1. Blood pressure and heart rate are stable. 2. Continue current medication. 3. Resume Coumadin at 4 mg daily and keep INR between 2-3. 4. 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 5. Above treatment plan discussed with the patient and his who is at bedside and all questions were answered. [place], [place] PROGRESS NOTE NAME: TWYLA HADLEY UNIT #: [id number] ROOM: 426 DOCTOR: LAMAR TAYLOR MD BIRTHDATE: [birth year] LAMAR TAYLOR MD CM:JEAN PIERRE [phone] LAMAR TAYLOR MD 06/29/188 interface
--- NOTE | ~2018-06-23 | EKG ---
[place], [place] ELECTROCARDIOGRAM REPORT NAME: TWYLA HADLEY UNIT #: [id number] ROOM: [facility] DOCTOR: MASOOD DRAFT REPORT BIRTHDATE: [birth year] [facility] Test Date: 2018-06-23 Test Time: 10:20:16 Pat Name: TWYLA HADLEY Department: Room: [facility] Gender: M Academy Director: : 1945 Requested By: JAYDEN MILAN Order Number: [id number] Reading MD: Demetria Rollins MD Measurements Intervals [place] Rate: 88 P: 23 IN: 200 QRS: 36 QRSD: 108 T: 2 QT: 363 QTc: 440 Interpretive Statements Sinus rhythm Anterior infarct, old Electronically Signed On 06-23-2018 16:16:26 PDT by Demetria Rollins MD CM:EKGRPT:ELECTROCARDIOGRAM REPORT [id number] JAYDEN MILLER DRAFT REPORT JAYDEN MILAN DO
--- NOTE | ~2018-06-23 | PR ---
[place], [place] PROGRESS NOTE NAME: TWYLA HADLEY UNIT #: [id number] ROOM: 426 DOCTOR: GUILLERMINA ROME MD,LORRI BIRTHDATE: [birth year] DOS: 06/28/2018 PULMONARY PROGRESS NOTE SUBJECTIVE: The patient has been doing well with current treatment. Denies symptoms of fever or chills. Denies symptoms of hemoptysis. Shortness of breath has been gradually subsiding. There were no symptoms of headache or diplopia. Denies symptoms of nausea, vomiting, diarrhea, abdominal pain, hematemesis, or melena. Denies symptoms of any fever or chills. Remaining history reviewed noted negative. OBJECTIVE: VITAL SIGNS: Normal temperature, respiratory rate of 22, heart rate 74, blood pressure 116/58-114/63. Pulse oxygen saturation on 10 liters nasal cannula 94% saturation. BiPAP 98% saturation. HEENT: Head was atraumatic. Eyes: No icterus. NECK: Supple. CARDIOVASCULAR: S1, S2 is audible. LUNGS: The patient was noted with decreased breath sounds. Occasional crackles in the lung bases. There was no wheezing. ABDOMEN: Soft, nontender. Bowel sounds present. EXTREMITIES: Without any edema. MUSCULOSKELETAL: Without acute deformities. CENTRAL NERVOUS SYSTEM: Cranial nerves 2-12 intact. LABORATORY DATA: Urine for Legionella antigen and strep antigen report noted negative. Arterial blood gas this morning, pH 7.47, pCO2 of 35, pO2 of 73.6. Respiratory virus panel, which is molecular test was noted positive influenza A infection with other viruses negative. The chest x-ray yesterday showing significant improvement continued in the pulmonary infiltration. IMPRESSION: 1. Acute influenza infection with acute respiratory failure. Legionella pneumonia still cannot be excluded. The urine antigen noted negative. Does not exclude all the species of Legionella pneumonia. 2. Acute severe hypoxic respiratory failure, which has been gradually improving. PLAN OF MANAGEMENT: Discontinue Rocephin. Continue Levaquin for a total of 14 days of treatment. The patient is already being treated for influenza infection, treated for 5 days of Tamiflu 75 mg b.i.d. Completed the total duration of the current medication. Bronchodilator will be continued. The patient will be transferred to the telemetry floor. Continue to adjust the Coumadin to maintain a therapeutic INR. Other supportive therapy, plan of management with additional treatment changes will be made for this based on progression of the illness. [place], [place] PROGRESS NOTE NAME: TWYLA HADLEY A UNIT #: [id number] ROOM: 426 DOCTOR: LORRI CARTER MD BIRTHDATE: [birth year] LORRI SARMIENTO MD CM:PNTRANS [phone] LORRI ROME MD 06/29/18 0103 interface
--- NOTE | ~2018-06-23 | PR ---
[place], [place] PROGRESS NOTE NAME: TWYLA HADLEY UNIT #: [id number] ROOM: [facility] DOCTOR: GUILLERMINA ROME MD,LORRI BIRTHDATE: [birth year] DOS: 06/26/2018 PULMONARY PROGRESS NOTE SUBJECTIVE: The patient appears to be comfortable at this time, using oxygen supplementation - 80% Optiflow of oxygen and used the BiPAP last night with 70% oxygen. He has been noted awake and alert. The patient does have mild cough without any sputum expectoration. Denies symptoms of chest pain, fever, or chills. Denies symptoms of hemoptysis. The patient is continuing on antibiotic at this time. He remains afebrile, except low-grade fever noted of 100-degree Fahrenheit at 2000 hours. Denies any abdominal pain. Denies symptoms of nausea, vomiting, diarrhea, or abdominal pain. Generalized weakness and fatigued noted with partial improvement. Denies symptoms of abdominal pain. Denies symptoms of nausea or vomiting. Denies any headache or diplopia. Remaining systems reviewed and they were noted all negative. Family, social, surgical history remains unchanged. OBJECTIVE: GENERAL: The patient is currently sitting on the chair this morning, using Optiflow oxygen supplementation, fully awake, and alert, oriented. VITAL SIGNS: Temperature 100-degree Fahrenheit - normal temperature, respiratory rate 20-22, heart rate 74-110, blood pressure 140/58-119/53. The pulse oxygen saturation with 80% oxygen Optiflow is 95% and with oxygen that I asked to decrease 70% which has been monitored for the past 15 minutes remains at 93-94% saturation. HEENT: Examination shows head is atraumatic. Eyes nonicterus. NECK: Supple. CARDIOVASCULAR: S1 and S2 audible. LUNGS: Noted with decreased breath sounds in the lungs bilaterally. Scattered crackles. There is no wheezing. ABDOMEN: Soft, nontender. Bowel sounds are present. EXTREMITIES: Noted with mild edema. VISIBLE SKIN: No lesions or rashes. MUSCULOSKELETAL: Without acute deformities. CENTRAL NERVOUS SYSTEM: Cranial nerves 2 through 12 intact. LABORATORY DATA: CMP was noted with BUN 30, creatinine normal, glucose 223, sodium 132, potassium 3.4, chloride of 94. AST was 88, albumin 2.1. CBC: WBC count 14.1, hemoglobin 13.8, hematocrit 37.9, and platelet count [id number]. Culture of the sputum was noted as normal thania. INR is still elevated at 6.6. IMPRESSION: The patient who has been currently noted with: 1. Persistent acute hypoxemic respiratory failure, partial improvement from yesterday. 2. Bilateral pneumonia, rule out Legionella pneumonia. 3. Mildly abnormal LFTs. 4. Low-grade fever still noted. 5. Mild edema of the lower extremity, better. 6. Mild hypokalemia as well. 7. Abnormal INR as well. [place], [place] PROGRESS NOTE NAME: TWYLA HADLEY UNIT #: [id number] ROOM: [facility] DOCTOR: GUILLERMINA ROME MD,LORRI BIRTHDATE: [birth year] PLAN OF MANAGEMENT: Continue antibiotics, bronchodilators, oxygen supplementation, supplementation of electrolytes. Bronchodilator administration. Titrate his oxygen down further to maintain pulse ox at 92% or greater. Usual care, other supportive plan of therapy, care plan and treatment. Additional treatment changes will continue to be made based on progression of illness. Monitor the INR. No intervention will be necessary. The patient will continue with the same other plan of management as in progress. Awaiting serology sent for this patient. LORRI SARMIENTO MD CM:PNTRANS 1227 LORRI ROME MD 06/27/188 interface
[~2018-06-23 10:14] MED LIST changes: +GOOD NEIGHBOR M25 M1 PO; +ZOFRAN4 MG PO
[2018-06-23 10:33] LABS: HEMATOCRIT 41.5 % (42.0-52.0); HEMOGLOBIN 13.9 g/dl (14.0-18.0); MEAN CELL VOLUME 95.2 fl (80.0-94.0); MEAN CORPUSCULAR HGB 31.9 pg (27.0-31.0); MEAN CORPUSCULAR HGB CONC 33.5 g/dl (33.0-37.0); MEAN PLATELET VOLUME 9.2 fl (9.6-12.3); PLATELET COUNT AUTOMATED 141 10*3/uL (130-400); RED BLOOD COUNT 4.36 10*6/uL (4.50-5.90); RED CELL DISTRI WIDTH 13.9 % (0-14.5); WHITE BLOOD COUNT 3.6 10*3/uL (4.8-10.8)
[2018-06-23 10:44] LABS: INTERNATIONAL NORM RATIO 1.7 (2.0-3.5)
[2018-06-23 10:59] LABS: ALBUMIN 2.8 gm/dl (3.1-4.5); ALKALINE PHOSPHATASE 77 U/L (45-117); BUN 24 mg/dl (7-24); CHLORIDE 97 mmol/L (98-107); CREATININE 1.24 mg/dL (0.70-1.30); POTASSIUM 4.3 mmol/L (3.5-5.1); SGOT/AST 49 IU/L (3-35); SGPT/ALT 33 U/L (12-78); SODIUM 132 mmol/L (136-145); TOTAL PROTEIN 6.9 gm/dL (6.4-8.2)
[2018-06-23 11:00] LABS: ATYPICAL LYMPHS 2 % (0-0); BURR CELLS FEW; DOHLE BODIES FEW; PLATELET SUFFICIENCY NORMAL (NORMAL); TOTAL CELLS COUNTED 100 #CELLS; TOXIC GRANULATION SLIGHT
--- NOTE | 2018-06-23 12:20 | NUR ---
DR. MCCARTHY'S OFFICE NOTIFIED OF CONSULT.
--- NOTE | 2018-06-23 12:49 | NUR ---
MARIA TERESA SENT TO THE FLOOR WITH THE PATIENT. JAYLON AVILA RN.
[2018-06-23] MEDS ORDERED: METFORMIN HCL500 M2 PO (12:52)
[2018-06-23] MEDS ORDERED: ISOSORBIDE30 MG PO (12:53)
[2018-06-23] MEDS ORDERED: COUMADIN2 MG PO (12:55)
[2018-06-23] MEDS ORDERED: COUMADIN6 M2 PO (12:56)
[2018-06-23] MEDS ORDERED: NITROGLYCERIN0.4 MG SL (12:58)
[2018-06-23] MEDS ORDERED: HYDR25T PO (12:59)
[2018-06-23] MEDS ORDERED: ZESTRIL20 MG PO (13:00)
[2018-06-23] MEDS ORDERED: PRILOSEC20 M1 PO (13:04)
--- NOTE | 2018-06-23 13:19 | NUR ---
DR. CONTRERAS NOTIFIED OF LACTIC ACID 7.1
--- NOTE | 2018-06-23 15:32 | NUR ---
WAYNE SCANNED FOR 450CC URINE
[2018-06-23 15:48] LABS: ABG HCO3 14.3 mmol/l (22-26); ABG O2 SATURATION 95.2 % (95-97); ARTERIAL BLOOD GAS PCO2 27.2 mmHg (35-45); ARTERIAL BLOOD GAS PH 7.346 (7.35-7.45); ARTERIAL BLOOD GAS PO2 80.4 mmHg (80-90)
[2018-06-23 15:49] LABS: ABG BASE EXCESS -9.3 mmol/L (-2.0-2.0)
--- NOTE | 2018-06-23 16:15 | NUR ---
DR. SARMIENTO NOTIFIED OF CONSULT
--- NOTE | 2018-06-23 16:30 | NUR ---
TAKEN DOWN TO X-RATY FOR CT CHEST
[2018-06-23 17:28] LABS: BILIRUBIN NEGATIVE (NEGATIVE); BLOOD TRACE-LYSED (NEGATIVE); CLARITY CLEAR (CLEAR); COLOR YELLOW (YELLOW); GLUCOSE 1+ (NEGATIVE); KETONE NEGATIVE (NEGATIVE); LEUKO ESTERASE NEGATIVE (NEGATIVE); NITRITE NEGATIVE (NEGATIVE); PH 5.5 (5.0-9.0); UROBILINOGEN 0.2 E.U./dl (0.2-1.0)
[2018-06-23 17:40] LABS: BACTERIA 1+; MUCOUS 1+
--- NOTE | 2018-06-23 20:00 | NUR ---
PATIENT SITTING AT SIDE OF BED, STATED HE IS FEELING WORSE AND HIS BREATHING IS BECOMING WORSE, VERY SHORT OF BREATH. PATIENT ASKED IF HE NEED THE FLUIDS BECAUSE HE FELT HIS CHEST HEAVY. PATIENTS PULSE OX IS 90% ON 6L NC, CHANGED OUT NC FOR HIGH FLOW 8L. POX 94% ON 8L. RALES HEARD IN BASES, RHONCHI AND WHEEZES THROUGHOUT. CONTACTED DR. SADLER, NEW ORDERS RECEIVED, IVF D/C'D. WILL MONITOR.
--- NOTE | 2018-06-23 22:00 | NUR ---
PATIENTS POX 89-90% ON 8L HIGH FLOW, PATIENT STATED HE WEARS A CPAP AT NIGHT, CONTACTED DR. SADLER, RECEIVED NEW ORDER FOR CPAP. RESPIRATORY NOTIFIED.
--- NOTE | 2018-06-23 22:30 | NUR ---
PATIENT PLACED ON CPAP AT 10 AND 40%. PULSE OX 95%. PATIENT COMFORTABLE AT THIS TIME.
[2018-06-24] VITALS: BP 132/60
--- NOTE | 2018-06-24 00:30 | NUR ---
PATIENT STATES NOTHING IS WORKING, HE SAID HE CANT GET NO SLEEP ON THE CPAP, BECAUSE ITS NOT LIKE HIS AT HOME. THEN PATIENT STATED HE IS JUST FEELING ANXIOUS AND HAVING NAUSEA AND BACK PAIN. PATIENT WAS PLACED BACK ON 8L HIGH FLOW, ZOFRAN, NORCO AND RESTORIL GIVEN. PATIENTS PULSE OX 91%. WILL CONTINUE TO MONITOR AND REASSESS PAIN AND NAUSEA.
--- NOTE | 2018-06-24 03:30 | NUR ---
PATIENT AWAKE IN CHAIR, STATED HE SLEPT FOR A LITTLE BIT AND THAT THE NORCO WAS EFFECTIVE FOR PAIN, ALSO ZOFRAN EFFECTIVE.
[2018-06-24 04:00] VITALS: BP 120/64
--- NOTE | 2018-06-24 04:51 | NUR ---
24 HR chart check completed.
[2018-06-24 06:35] LABS: INTERNATIONAL NORM RATIO 4.5 (2.0-3.5)
[2018-06-24 06:37] LABS: CHLORIDE 100 mmol/L (98-107); CREATININE 0.93 mg/dL (0.70-1.30); POTASSIUM 3.7 mmol/L (3.5-5.1); SODIUM 132 mmol/L (136-145)
[2018-06-24 06:40] LABS: CHOLESTEROL 79 mg/dL (<200); PHOSPHOROUS 1.3 mg/dL (2.5-4.9); TRIGLYCERIDES 138 mg/dl (<150); VLDL CHOLESTEROL 28 mg/dL (6-40)
[2018-06-24 06:48] LABS: BUN 14 mg/dl (7-24); FREE T4 1.37 ng/dl (0.76-1.46); HDL CHOLESTEROL 19 mg/dl (40-60); LDL CHOLESTEROL 32 mg/dL (9-159); THYROID STIM HORMONE (HS) 0.308 uIU/ml (0.358-4.75)
[2018-06-24 07:03] LABS: HEMATOCRIT 37.2 % (42.0-52.0); HEMOGLOBIN 12.8 g/dl (14.0-18.0); MEAN CORPUSCULAR HGB 31.6 pg (27.0-31.0); MEAN CORPUSCULAR HGB CONC 34.4 g/dl (33.0-37.0); MEAN PLATELET VOLUME 9.9 fl (9.6-12.3); PLATELET COUNT AUTOMATED 136 10*3/uL (130-400); RED BLOOD COUNT 4.05 10*6/uL (4.50-5.90); RED CELL DISTRI WIDTH 13.8 % (0-14.5); WHITE BLOOD COUNT 6.9 10*3/uL (4.8-10.8)
[2018-06-24 07:04] LABS: MEAN CELL VOLUME 91.9 fl (80.0-94.0)
[2018-06-24 07:36] LABS: VITAMIN D, 25-HYDROXY 28.5 ng/mL (30-100)
[2018-06-24 07:53] LABS: PLATELET SUFFICIENCY NORMAL (NORMAL); TOTAL CELLS COUNTED 100 #CELLS
--- NOTE | 2018-06-24 07:56 | NUR ---
Shift chart check completed. Dr Perry made aware of increased SOB, elevated INR, assessment findings.
[2018-06-24 08:00] VITALS: BP 110/60
--- NOTE | 2018-06-24 08:30 | NUR ---
ECHO IN PROCESS AT BEDSIDE.
--- NOTE | 2018-06-24 09:38 | NUR ---
IV HEP LOCK TO LEFT HAND REMOVED.
[2018-06-24 12:00] VITALS: BP 108/60
[2018-06-24 13:27] LABS: ABG HCO3 20.9 mmol/l (22-26); ABG O2 SATURATION 85.6 % (95-97); ARTERIAL BLOOD GAS PCO2 31.1 mmHg (35-45); ARTERIAL BLOOD GAS PH 7.441 (7.35-7.45); ARTERIAL BLOOD GAS PO2 48.1 mmHg (80-90)
--- NOTE | 2018-06-24 13:39 | NUR ---
Notified [facility] intake center of admission
--- NOTE | 2018-06-24 13:42 | NUR ---
DR SARMIENTO CALLED WITH ABG RESULTS.
--- NOTE | 2018-06-24 15:00 | NUR ---
Mortar Man in to talk to patient. Patient states lives at home with his . There are 0 steps in the home. Physician: Cristo ARTIS at [place] [facility] Home health services: none Patient's level of ADLs: INDEPENDENT Patient has working utilities: yes DME: c-pap Follow-up physician's appointment after d/c: will be made by the hospitalist nurse director upon discharge Does patient want to access PORTAL?: no Discharge plan discussed with patient and who is at the bedside. He lives at home with his . He is independent in his ADLs and ambulation. Discussed home health care services and he denies any home needs at this time. When medically stable he will be discharged to home. ALFONSO ROBERTSON
[2018-06-24 16:00] VITALS: BP 101/58
--- NOTE | 2018-06-24 16:34 | NUR ---
DR SARMIENTO CALLED WITH INABILITY TO MAINTAIN OXYGEN SATS >87% ON HIGH FLOW NASAL CANNULA AT 10L. PATIENT IS DYSPNIC AT REST AND DESATS WITHMINIMAL EXERTION. PATIENT NOT WANTING TO WEAR BIPAP. ORDER FOR BIPAP OR INTUBATION. DR JAY & MYSELF DISCUSSED AND PATIENT IS THINKING INTUBATION BUT THE WANTS BIPAP 1ST. PATIENT AGREED TO BIPAP. RESP THERAPY CALLED.
--- NOTE | 2018-06-24 17:00 | NUR ---
PLACED ON BIPAP 14/10 50%. SATS 86-88% ON HFNC 10L PRIOR.
--- NOTE | 2018-06-24 18:03 | NUR ---
SATS HOLDING LOW 90'W ON BIPAP
[2018-06-24 20:00] VITALS: BP 122/65
--- NOTE | 2018-06-24 21:50 | NUR ---
TYLENOL GIVEN FOR ELEVATED TEMPERATURE. PATIENT HAS NO COMPLAINTS AT THIS TIME. CALL LIGHT WITHIN REACH.
--- NOTE | 2018-06-24 22:30 | NUR ---
PATIENT ASKED IF THEY WOULD LIKE TO BE BATHED AND CLEANED UP THIS EVENING. PATIENT STATES THAT HE IS GOOD AND DOESN'T NEED WASHED UP AT THIS TIME. WILL ASK AGAIN IN THE MORNING.
[2018-06-25] VITALS: BP 134/72
[2018-06-25 04:00] VITALS: BP 131/74
[2018-06-25 05:23] LABS: CHLORIDE 95 mmol/L (98-107); CREATININE 0.87 mg/dL (0.70-1.30); PHOSPHOROUS 1.7 mg/dL (2.5-4.9); POTASSIUM 3.5 mmol/L (3.5-5.1); SODIUM 133 mmol/L (136-145)
[2018-06-25 05:26] LABS: BUN 25 mg/dl (7-24)
[2018-06-25 06:02] LABS: HEMATOCRIT 37.2 % (42.0-52.0); HEMOGLOBIN 12.8 g/dl (14.0-18.0); MEAN CORPUSCULAR HGB 31.3 pg (27.0-31.0); MEAN CORPUSCULAR HGB CONC 34.4 g/dl (33.0-37.0); MEAN PLATELET VOLUME 10.2 fl (9.6-12.3); PLATELET COUNT AUTOMATED 166 10*3/uL (130-400); RED BLOOD COUNT 4.09 10*6/uL (4.50-5.90); RED CELL DISTRI WIDTH 13.7 % (0-14.5); WHITE BLOOD COUNT 9.4 10*3/uL (4.8-10.8)
[2018-06-25 06:21] LABS: INTERNATIONAL NORM RATIO 5.9 (2.0-3.5)
--- NOTE | 2018-06-25 06:32 | NUR ---
DR. WHEATLEY NOTIFIED OF ELEVATED INR AND PT. NO FURTHER ORDERS GIVEN AT THIS TIME. PATIENT ASYMPTOMATIC AT THIS TIME.
[2018-06-25 07:09] LABS: TOTAL CELLS COUNTED 100 #CELLS
[2018-06-25 07:10] LABS: BURR CELLS FEW; PLATELET SUFFICIENCY NORMAL (NORMAL)
--- NOTE | 2018-06-25 07:50 | NUR ---
PATIENT TAKEN OFF OF BI-PAP, PLACED ON HIGH FLOW @ 15 L/M.
[2018-06-25 07:59] LABS: ABG BASE EXCESS 4.1 mmol/L (-2.0-2.0); ABG HCO3 26.5 mmol/l (22-26); ARTERIAL BLOOD GAS PCO2 32.9 mmHg (35-45); ARTERIAL BLOOD GAS PH 7.515 (7.35-7.45); ARTERIAL BLOOD GAS PO2 73.8 mmHg (80-90)
[2018-06-25 08:00] VITALS: BP 100/60
--- NOTE | 2018-06-25 08:40 | NUR ---
PATIENT TAKEN OFF OF HIGH FLOW, PLACED ON OPTI-FLOW @ 90%. PULSE OX 93%-94%.
--- NOTE | 2018-06-25 09:15 | NUR ---
DR SARMIENTO CALLED WITH ABG RESULTS. INFORMED THAT HE IS NOW ON THE OPTIFLOW AT 05% - 50L AND SATS ARE HOLDING 94%. NO CHANGES AT THIS TIME.
--- NOTE | 2018-06-25 09:33 | NUR ---
DR KAYLI DUGAN
--- NOTE | 2018-06-25 10:00 | NUR ---
NORCO GIVEN FOR C/O BACK PAIN 06/29.
--- NOTE | 2018-06-25 10:07 | NUR ---
PATIENT ASSISTED UP TO RECLINER FOR COMFORT. PULSE OX DROPPED TO 86% WITH ACTIVITY ON 90% OPTIFLOW & INCREASED SOB VISIBLY SEEN
[2018-06-25 12:00] VITALS: BP 97/58
[2018-06-25 16:00] VITALS: BP 98/61
--- NOTE | 2018-06-25 17:08 | NUR ---
DR MCCARTHY ROUNDED - CASE DISCUSSED & ORDERS RECEVIED
[2018-06-25 20:00] VITALS: BP 144/58
[2018-06-26] VITALS: BP 128/78
[2018-06-26 04:00] VITALS: BP 140/69
[2018-06-26 05:46] LABS: ALBUMIN 2.1 gm/dl (3.1-4.5); BUN 30 mg/dl (7-24); CHLORIDE 94 mmol/L (98-107); CREATININE 0.86 mg/dL (0.70-1.30); PHOSPHOROUS 2.6 mg/dL (2.5-4.9); POTASSIUM 3.4 mmol/L (3.5-5.1); SGOT/AST 88 IU/L (3-35); SGPT/ALT 75 U/L (12-78); SODIUM 132 mmol/L (136-145)
[2018-06-26 05:48] LABS: ALKALINE PHOSPHATASE 101 U/L (45-117); HEMATOCRIT 37.9 % (42.0-52.0); MEAN CELL VOLUME 90.9 fl (80.0-94.0); MEAN CORPUSCULAR HGB 31.2 pg (27.0-31.0); MEAN CORPUSCULAR HGB CONC 34.3 g/dl (33.0-37.0); MEAN PLATELET VOLUME 10.4 fl (9.6-12.3); PLATELET COUNT AUTOMATED 184 10*3/uL (130-400); RED BLOOD COUNT 4.17 10*6/uL (4.50-5.90); RED CELL DISTRI WIDTH 13.9 % (0-14.5); TOTAL PROTEIN 6.7 gm/dL (6.4-8.2); WHITE BLOOD COUNT 14.1 10*3/uL (4.8-10.8)
[2018-06-26 06:42] LABS: PLASMA CELL 1 % (0-0); PLATELET SUFFICIENCY NORMAL (NORMAL); TOTAL CELLS COUNTED 100 #CELLS; TOXIC GRANULATION SLIGHT
--- NOTE | 2018-06-26 07:15 | NUR ---
PATIENT TAKEN OFF OF BI-PAP, PLACED ON OPTI-FLOW AT 80%.
--- NOTE | 2018-06-26 07:47 | NUR ---
PATIENT MEDICATED WITH NORCO PER DRS ORDERS FOR COMPLAINTS OF BACK PAIN. SEE EMAR. RN WILL CONTINUE TO MONITOR
[2018-06-26 08:00] VITALS: BP 122/80
[2018-06-26 08:15] LABS: INTERNATIONAL NORM RATIO 6.6 (2.0-3.5)
--- NOTE | 2018-06-26 08:35 | NUR ---
PATIENT STATES EARLIER MEDICATION WAS EFFECTIVE
--- NOTE | 2018-06-26 11:10 | NUR ---
PATIENT SITTING UP ON EDGE OF BED, GETTING WASHED UP AT THIS TIME. SHAVED HIS FACE WITH THE ASSISTANCE OF RN. PATIENT BATHED AND THEN AMBULATED TO THE CHAIR WITH MINIMAL SHORTNESS OF BREATH. PATIENTS BED WAS CHANGED WHILE HE SAT IN THE CHAIR. DENIES OTHER NEEDS AT THIS TIME. RN WILL CONTINUE TO MONITOR
--- NOTE | 2018-06-26 11:23 | NUR ---
PATIENT O2 SATURATION REMAINS 95% ON THE 70% OPTIFLOW. PATIENT DENIES FEELINGS OF SHORTNESS OF BREATH AT REST. DENIES ANY NEEDS AT THIS TIME. RN WILL CONTINUE TO MONITOR
--- NOTE | 2018-06-26 11:45 | NUR ---
DR SARMIENTO IN TO SEE PATIENT, ORDERS RECIEVED TO DECREASE OPTIFLOW O2 FORM 80% TO 70%. RESPIRATORY IN TO TITRATE O2 DOWN
[2018-06-26 12:00] VITALS: BP 119/53
--- NOTE | 2018-06-26 15:13 | NUR ---
Shift chart check completed.24 HR chart check completed.
[2018-06-26 16:00] VITALS: BP 119/55
--- NOTE | 2018-06-26 16:38 | NUR ---
ON ASSESSMENT PATIENT IS UP IN CHAIR AT THE BEDSIDE. HIS AT THE BEDSIDE. HE'S ON OPTIFLOW NASAL CANNULA. RESPIRATORY THERAPY HAS TITRATED HIM FROM 65% TO 60%. PT HAS NO VOICED COMPLAINTS OF PAIN OR SHORTNESS OF BREATH AT THIS TIME. SEE ALL APPROPRIATE INTERVENTIONS.
--- NOTE | 2018-06-26 18:12 | NUR ---
PT WAS UP TO BSC FOR BM. HE COMPLAINED OF A "SORE AREA" AROUND HIS RECTAL AREA. ITS BLANCHABLE, APPEARS FUNGAL. DR SERRATO NOTIFIED AND ORDERS RECEIVED.
[2018-06-26 20:00] VITALS: BP 110/62
--- NOTE | 2018-06-26 21:52 | NUR ---
IN BED, WATCHING TV. FAN PROVIDED IN THE ROOM PER HIS REQUEST.
--- NOTE | 2018-06-26 23:15 | NUR ---
RESPIRATORY PLACED PT ON BIPAP 14/10, 60% O2. PT IN POSITION OF COMFORT.
--- NOTE | 2018-06-26 23:44 | NUR ---
RESTORIL FOR SLEEP.
[2018-06-27] VITALS: BP 123/62
--- NOTE | 2018-06-27 01:20 | NUR ---
EARLIER RESTORIL EFFECTIVE. PT SLEEPING, BIPAP MASK IN PLACE.
[2018-06-27 03:12] VITALS: BP 126/72
[2018-06-27 05:38] LABS: HEMATOCRIT 37.1 % (42.0-52.0); HEMOGLOBIN 12.7 g/dl (14.0-18.0); MEAN CELL VOLUME 92.1 fl (80.0-94.0); MEAN CORPUSCULAR HGB 31.5 pg (27.0-31.0); MEAN CORPUSCULAR HGB CONC 34.2 g/dl (33.0-37.0); MEAN PLATELET VOLUME 10.1 fl (9.6-12.3); PLATELET COUNT AUTOMATED 210 10*3/uL (130-400); RED BLOOD COUNT 4.03 10*6/uL (4.50-5.90); RED CELL DISTRI WIDTH 14.2 % (0-14.5); WHITE BLOOD COUNT 14.2 10*3/uL (4.8-10.8)
[2018-06-27 06:00] LABS: INTERNATIONAL NORM RATIO 4.7 (2.0-3.5)
--- NOTE | 2018-06-27 06:00 | NUR ---
LAB CALLED WITH INR OF 4.7. THIS IS TRENDING DOWN. PT REMOVED FROM BIPAP PER HIS REQUEST. PLACED ON OPTIFLOW NASAL CANNULA AT 60%. SLEPT AT LONG INTERVALS.
[2018-06-27 06:02] LABS: ALBUMIN 2.2 gm/dl (3.1-4.5); ALKALINE PHOSPHATASE 85 U/L (45-117); BUN 31 mg/dl (7-24); CHLORIDE 94 mmol/L (98-107); CREATININE 0.85 mg/dL (0.70-1.30); SGOT/AST 54 IU/L (3-35); SGPT/ALT 82 U/L (12-78); SODIUM 132 mmol/L (136-145); TOTAL PROTEIN 6.4 gm/dL (6.4-8.2)
[2018-06-27 06:16] LABS: ATYPICAL LYMPHS 2 % (0-0); TOTAL CELLS COUNTED 100 #CELLS
[2018-06-27 06:17] LABS: POTASSIUM 4.6 mmol/L (3.5-5.1)
[2018-06-27 06:19] LABS: PLATELET SUFFICIENCY NORMAL (NORMAL); TOXIC GRANULATION SLIGHT
[2018-06-27 08:00] VITALS: BP 132/65
--- NOTE | 2018-06-27 08:29 | NUR ---
DR SINGH IN TO SEE PT.
--- NOTE | 2018-06-27 10:16 | NUR ---
DR SINGH AND DR SARMIENTO IN TO SEE PT EARLIER. NEW ORDERS RECEIVED. PT TO XRAY FOR CXR VIA WC.
[2018-06-27 11:09] LABS: ABG BASE EXCESS 3.9 mmol/L (-2.0-2.0); ABG HCO3 26.9 mmol/l (22-26); ABG O2 SATURATION 96.6 % (95-97); ARTERIAL BLOOD GAS PCO2 35.8 mmHg (35-45); ARTERIAL BLOOD GAS PH 7.487 (7.35-7.45); ARTERIAL BLOOD GAS PO2 82.7 mmHg (80-90)
[2018-06-27 11:58] VITALS: BP 110/59; BP 120/65
--- NOTE | 2018-06-27 12:21 | NUR ---
UPDATED DR SARMIENTO ON ABG RESULTS EARLIER. NEW ORDERS RECEIVED.
[2018-06-27 16:00] VITALS: BP 120/56
--- NOTE | 2018-06-27 16:14 | NUR ---
DR SARMIENTO CALLED IN REGARDING PT. NEW ORDERS RECEIVED. KALPANA,RESP. THERAPIST, NOTIFIED OF CHANGES.
--- NOTE | 2018-06-27 18:02 | NUR ---
PT TOLERATING 10 LITERS OF HIGH FLOW OXYGEN WELL. PT DENIES COMPLAINTS AT THIS TIME. PT REFUSING A BATH AT THIS TIME.
[2018-06-27 20:00] VITALS: BP 122/60
[2018-06-28 00:01] VITALS: BP 114/63
--- NOTE | 2018-06-28 01:40 | NUR ---
PATIENT CURRENTLY WEARING BIPAP ORDRED RESPIRATORY PUT IT ON AROUND 2330.
[2018-06-28 05:09] LABS: BUN 27 mg/dl (7-24); CHLORIDE 94 mmol/L (98-107); CREATININE 0.86 mg/dL (0.70-1.30); PHOSPHOROUS 3.6 mg/dL (2.5-4.9); POTASSIUM 4.6 mmol/L (3.5-5.1); SODIUM 132 mmol/L (136-145)
[2018-06-28 05:56] LABS: HEMATOCRIT 36.1 % (42.0-52.0); HEMOGLOBIN 12.2 g/dl (14.0-18.0); MEAN CELL VOLUME 92.3 fl (80.0-94.0); MEAN CORPUSCULAR HGB 31.2 pg (27.0-31.0); MEAN CORPUSCULAR HGB CONC 33.8 g/dl (33.0-37.0); MEAN PLATELET VOLUME 10.5 fl (9.6-12.3); PLATELET COUNT AUTOMATED 234 10*3/uL (130-400); RED BLOOD COUNT 3.91 10*6/uL (4.50-5.90); RED CELL DISTRI WIDTH 14.1 % (0-14.5); WHITE BLOOD COUNT 15.3 10*3/uL (4.8-10.8)
[2018-06-28 06:32] LABS: INTERNATIONAL NORM RATIO 2.5 (2.0-3.5)
[2018-06-28 07:12] LABS: TOTAL CELLS COUNTED 100 #CELLS
[2018-06-28 07:13] LABS: BURR CELLS MODERATE; PLATELET SUFFICIENCY NORMAL (NORMAL)
[2018-06-28 07:51] LABS: ABG BASE EXCESS 3.1 mmol/L (-2.0-2.0); ABG HCO3 26.3 mmol/l (22-26); ABG O2 SATURATION 95.2 % (95-97); ARTERIAL BLOOD GAS PCO2 35.9 mmHg (35-45); ARTERIAL BLOOD GAS PH 7.476 (7.35-7.45); ARTERIAL BLOOD GAS PO2 73.6 mmHg (80-90)
[2018-06-28 08:00] VITALS: BP 116/58
[2018-06-28 08:11] LABS: ADENOVIRUS Negative (Negative); INFLUENZA A Positive (Negative); INFLUENZA B Negative (Negative); METAPNEUMOVIRUS Negative (Negative); PARAINFLUENZA 1 Negative (Negative); PARAINFLUENZA 2 Negative (Negative); PARAINFLUENZA 3 Negative (Negative); RHINOVIRUS Negative (Negative); RSV A Negative (Negative); RSV B Negative (Negative)
--- NOTE | 2018-06-28 11:00 | NUR ---
Stock Buyer in to see patient. No new needs or request at this time. He denies any home needs. When medically stable he will be discharged to home.
[2018-06-28 12:00] VITALS: BP 123/55
--- NOTE | 2018-06-28 12:14 | NUR ---
SPO2 97% ON 10L HFNC, DECREASED TO 8L, RN NOTIFIED
--- NOTE | 2018-06-28 13:59 | NUR ---
PT UPDATED ON ROOM TRANSFER. PT'S FAMILY NOTIFIED.
--- NOTE | 2018-06-28 14:15 | NUR ---
PT TRANSFERED TO 426 VIA . PT REPORT GIVEN TO RECEIVING NURSE.
--- NOTE | 2018-06-28 14:31 | NUR ---
CALLED SUSAN JUSTICE R/T PT'S FLU A POSITIVE RESULT. SHE STATED THAT HE DOES NOT NEED TO BE IN ISOLATION AT THIS TIME.
[2018-06-28 16:00] VITALS: BP 127/58
--- NOTE | 2018-06-28 16:16 | NUR ---
Nursing screen received and chart review completed. Patient admitted with pneumonia. If patient demonstrates a decline in ADLs or need for d/c planning consider OT referral. Nel Toure OTR/l
[2018-06-28 20:00] VITALS: BP 138/62
--- NOTE | 2018-06-28 21:47 | NUR ---
MEDICATED WITH PRN RESTORIL FOR C.O SLEEPLESSNESS
[2018-06-29] VITALS: BP 153/72
--- NOTE | 2018-06-29 01:28 | NUR ---
24 HR chart check completed.
[2018-06-29 06:31] LABS: INTERNATIONAL NORM RATIO 1.7 (2.0-3.5)
[2018-06-29 10:00] VITALS: BP 128/54
[2018-06-29 12:00] VITALS: BP 112/65
[2018-06-29 16:00] VITALS: BP 105/53
[2018-06-29 20:00] VITALS: BP 112/80
[2018-06-30] VITALS: BP 126/62
[2018-06-30 07:08] LABS: HEMATOCRIT 39.1 % (42.0-52.0); HEMOGLOBIN 13.4 g/dl (14.0-18.0); MEAN CELL VOLUME 91.6 fl (80.0-94.0); MEAN CORPUSCULAR HGB 31.4 pg (27.0-31.0); MEAN CORPUSCULAR HGB CONC 34.3 g/dl (33.0-37.0); PLATELET COUNT AUTOMATED 311 10*3/uL (130-400); RED BLOOD COUNT 4.27 10*6/uL (4.50-5.90); RED CELL DISTRI WIDTH 13.9 % (0-14.5); WHITE BLOOD COUNT 12.3 10*3/uL (4.8-10.8)
[2018-06-30 07:25] LABS: INTERNATIONAL NORM RATIO 1.6 (2.0-3.5)
[2018-06-30 07:31] LABS: BUN 25 mg/dl (7-24); CHLORIDE 95 mmol/L (98-107); SODIUM 130 mmol/L (136-145)
[2018-06-30 07:45] LABS: PLATELET SUFFICIENCY NORMAL (NORMAL); TOTAL CELLS COUNTED 100 #CELLS; TOXIC GRANULATION SLIGHT
--- NOTE | 2018-06-30 07:49 | NUR ---
PHYSICAL THERAPY Nursing screen received. PT orders also received. Thank you. Simona Levi,PT
[2018-06-30 08:00] VITALS: BP 116/57
--- NOTE | 2018-06-30 11:00 | NUR ---
[employer] Be[employer] Operator in to see patient. is at the bedside. Discussed home health care services and he denies any home needs at this time. No new needs or request. When medically stable he will be discharged to home.
--- NOTE | 2018-06-30 11:49 | NUR ---
Occupational Therapy evalaution offered this date but patient declined stating that he did not need any therapy and that he "has his limits and is going home today". Discharge OT referral d/t patients refusal and reporting that he is independent in mobility and ADls. Thank you. Nel Toure OTR/L
[2018-06-30 12:00] VITALS: BP 107/61
--- NOTE | 2018-06-30 13:24 | NUR ---
Spoke to [facility] at [facility]. Patient is 10% service connected, has no travel benefits. Patient has Medicare part A&B.
[2018-06-30] MEDS ORDERED: PREDNISONE10 MG PO (14:37)
[2018-06-30] MEDS ORDERED: LEVOFLOXACIN500 MG PO (14:37)
[2018-06-30] MEDS ORDERED: LOPRESSOR25 MG PO (14:37)
[2018-06-30] MEDS ORDERED: COUMADIN4 M2 PO (14:37)
[2018-06-30] MEDS ORDERED: AMLODIPINE BESYL5 MG PO (14:37)
--- NOTE | 2018-06-30 15:18 | NUR ---
Discharge instructions reviewed with patient/family. Patient receptive and verbalizes understanding. Follow-up care arranged. Written instructions given to patient/family. OVI ARCE
== END 2018-06-30 15:18 | disposition home or self-care (01) | DRG 871 ==
LOC: ED 10:14 → EDHOLD 11:34 → ICCU 11:34 → 4E 06-28 14:16 → ICCU 06-28 14:18 → 4E 06-29 12:51
PROVIDERS: Emergency Medicine; Family Medicine; Internal Medicine; Internal Medicine Cardiovascular Disease; Internal Medicine Critical Care Medicine; Student in an Organized Health Care Education/Training Program; ADMIT Internal Medicine
PROC: 5A09357 Assistance with Respiratory Ventilation, Less than 24 Consecutive Hours, Continuous Positive Airway Pressure (ICD-10-PCS; principal; 2018-06-24)
PROC: 5A09357 Assistance with Respiratory Ventilation, Less than 24 Consecutive Hours, Continuous Positive Airway Pressure (ICD-10-PCS; 2018-06-25)
PROC: 5A09357 Assistance with Respiratory Ventilation, Less than 24 Consecutive Hours, Continuous Positive Airway Pressure (ICD-10-PCS; 2018-06-26)
PROC: 5A09357 Assistance with Respiratory Ventilation, Less than 24 Consecutive Hours, Continuous Positive Airway Pressure (ICD-10-PCS; 2018-06-27)
PROC: 5A09357 Assistance with Respiratory Ventilation, Less than 24 Consecutive Hours, Continuous Positive Airway Pressure (ICD-10-PCS; 2018-06-28)
PROC: 5A09357 Assistance with Respiratory Ventilation, Less than 24 Consecutive Hours, Continuous Positive Airway Pressure (ICD-10-PCS; 2018-06-30)
DX: A41.9 Sepsis, unspecified organism (principal); J96.01 Acute respiratory failure with hypoxia; I21.4 Non-ST elevation (NSTEMI) myocardial infarction; I50.43 Acute on chronic combined systolic (congestive) and diastolic (congestive) heart failure; J10.00 Influenza due to other identified influenza virus with unspecified type of pneumonia; E44.0 Moderate protein-calorie malnutrition; E87.1 Hypo-osmolality and hyponatremia; I42.9 Cardiomyopathy, unspecified; J44.0 Chronic obstructive pulmonary disease with (acute) lower respiratory infection; J44.1 Chronic obstructive pulmonary disease with (acute) exacerbation; D68.9 Coagulation defect, unspecified; D64.9 Anemia, unspecified; E66.8 Other obesity; F41.1 Generalized anxiety disorder; K76.0 Fatty (change of) liver, not elsewhere classified; E87.6 Hypokalemia; I34.0 Nonrheumatic mitral (valve) insufficiency; I48.0 Paroxysmal atrial fibrillation; I25.119 Atherosclerotic heart disease of native coronary artery with unspecified angina pectoris; R65.20 Severe sepsis without septic shock; E78.5 Hyperlipidemia, unspecified; I11.0 Hypertensive heart disease with heart failure; G47.33 Obstructive sleep apnea (adult) (pediatric); Z95.1 Presence of aortocoronary bypass graft; Z82.49 Family history of ischemic heart disease and other diseases of the circulatory system; Z79.82 Long term (current) use of aspirin; Z79.01 Long term (current) use of anticoagulants; Z87.891 Personal history of nicotine dependence; Z68.31 Body mass index [BMI] 31.0-31.9, adult

== ENCOUNTER → 2018-12-22 | Outpatient (CLI) | payer OTHER ==
[~2018-12-22] MED LIST changes: +AMLODIPINE BESYL5 MG PO; +COUMADIN2 MG PO; +COUMADIN4 M2 PO; +COUMADIN6 M2 PO; +HYDR25T PO; +ISOSORBIDE30 MG PO; +LEVOFLOXACIN500 MG PO; +METFORMIN HCL500 M2 PO; +NITROGLYCERIN0.4 MG SL; +PRILOSEC20 M1 PO; +ZESTRIL20 MG PO
== END | disposition home or self-care (01) ==
LOC: CT 07:48
DX: K80.81 Other cholelithiasis with obstruction (principal)

== ENCOUNTER → 2019-02-01 | Outpatient (CLI) | payer OTHER | END | disposition home or self-care (01) | LOC: CARD 08:16 | DX: I48.20 Chronic atrial fibrillation, unspecified (principal); R91.1 Solitary pulmonary nodule; I51.7 Cardiomegaly ==

== ENCOUNTER → 2019-07-19 | Outpatient (CLI) | payer OTHER ==
[2019-07-19 07:44] LABS: INTERNATIONAL NORM RATIO 2.2 (2.0-3.5)
== END | disposition home or self-care (01) ==
LOC: LAB 06:57
DX: Z79.01 Long term (current) use of anticoagulants (principal)

== ENCOUNTER → 2020-01-22 | Outpatient (CLI) | payer OTHER | END | disposition home or self-care (01) | LOC: US 08:01 | PROVIDERS: ATTEND Nurse Practitioner Family | DX: I77.811 Abdominal aortic ectasia (principal) ==

== ENCOUNTER → 2020-10-09 | Outpatient (CLI) | payer OTHER | END | disposition home or self-care (01) | LOC: CARD 10:04 | PROVIDERS: ATTEND Nurse Practitioner Family | DX: I08.0 Rheumatic disorders of both mitral and aortic valves (principal) ==

== ENCOUNTER 2021-01-11 08:22 | Inpatient (IN) | payer OTHER ==
[~2021-01-11] VITALS: Ht 172.7 cm; Wt 93.2 kg
[2021-01-11 08:28] VITALS: BP 161/55
[2021-01-11 08:55] LABS: BASO # 0.1 10*3/uL (0.0-0.1); BASO % 0.7 % (0.0-1.0); EOS # 0.1 10*3/uL (0.0-0.4); EOS % 1.8 % (1.0-4.0); HEMATOCRIT 27.2 % (42.0-52.0); LYMPH # 1.5 10*3/uL (1.3-4.4); LYMPH % 20.7 % (27.0-41.0); MEAN CELL VOLUME 83.4 fl (80.0-94.0); MEAN CORPUSCULAR HGB 25.5 pg (27.0-31.0); MEAN CORPUSCULAR HGB CONC 30.5 g/dl (33.0-37.0); MEAN PLATELET VOLUME 8.8 fl (9.6-12.3); MONO # 0.7 10*3/uL (0.1-1.0); MONO % 10.5 % (3.0-9.0); NEUT # 4.7 10*3/uL (2.3-7.9); PLATELET COUNT AUTOMATED 279 10*3/uL (130-400); RED BLOOD COUNT 3.26 10*6/uL (4.50-5.90); RED CELL DISTRI WIDTH 16.7 % (0-14.5); WHITE BLOOD COUNT 7.1 10*3/uL (4.8-10.8)
[2021-01-11 09:09] LABS: ACT PARTIAL THROMBO TIME 36.2 SECONDS (20.0-32.1); INTERNATIONAL NORM RATIO 3.4 (2.0-3.5)
[2021-01-11 09:13] LABS: ALBUMIN 3.3 gm/dl (3.1-4.5); ALKALINE PHOSPHATASE 89 U/L (45-117); BUN 22 mg/dl (7-24); CHLORIDE 101 mmol/L (98-107); CREATININE 0.98 mg/dL (0.70-1.30); POTASSIUM 4.4 mmol/L (3.5-5.1); SGOT/AST 33 IU/L (3-35); SGPT/ALT 62 U/L (12-78); SODIUM 134 mmol/L (136-145); TOTAL PROTEIN 7.1 gm/dL (6.4-8.2)
[2021-01-11 09:22] LABS: BILIRUBIN Negative (Negative); BLOOD Negative (Negative); CLARITY Clear (Clear); COLOR Yellow (Yellow); GLUCOSE Negative (Negative); KETONE Negative (Negative); LEUKO ESTERASE Negative (Negative); NITRITE Negative (Negative); SPECIFIC GRAVITY 1.015 (1.001-1.030); UROBILINOGEN 0.2 E.U./dl (0.0-1.0)
[2021-01-11 09:30] LABS: BACTERIA TRACE; EPITHELIAL CELLS 0-2; MUCOUS 1+
[2021-01-11 10:25] VITALS: BP 111/51
[2021-01-11] MEDS ORDERED: WARFARIN2 MG PO (11:09)
[2021-01-11] MEDS ORDERED: PROAIR DIGIHAL90 MCG IH (11:09)
[2021-01-11] MEDS ORDERED: CETIRIZINE10 MG PO (11:10)
[2021-01-11] MEDS ORDERED: LOSARTAN-HCTZ1 EAC1 PO (11:12)
[2021-01-11] MEDS ORDERED: METOPROLOL SUCC50 M1 PO (11:13)
[2021-01-11] MEDS ORDERED: METFORMIN HYD1000 MG PO (11:15)
[2021-01-11 12:00] VITALS: BP 116/64
[2021-01-11 16:00] VITALS: BP 117/57
[2021-01-11 20:00] VITALS: BP 119/65
[2021-01-12] VITALS (11 sets, daily range): BP systolic 102–132; BP diastolic 45–90
[2021-01-12 06:31] LABS: BASO # 0.1 10*3/uL (0.0-0.1); BASO % 0.8 % (0.0-1.0); EOS # 0.3 10*3/uL (0.0-0.4); EOS % 2.6 % (1.0-4.0); HEMATOCRIT 27.4 % (42.0-52.0); LYMPH # 2.1 10*3/uL (1.3-4.4); LYMPH % 21.4 % (27.0-41.0); MEAN CELL VOLUME 84.8 fl (80.0-94.0); MEAN CORPUSCULAR HGB 25.4 pg (27.0-31.0); MEAN CORPUSCULAR HGB CONC 29.9 g/dl (33.0-37.0); MEAN PLATELET VOLUME 9.2 fl (9.6-12.3); MONO % 10.7 % (3.0-9.0); NEUT # 6.2 10*3/uL (2.3-7.9); NEUT % 64.3 % (47.0-73.0); NUCLEATED RED BLOOD CELL 0.2 % (0.0-0.0); PLATELET COUNT AUTOMATED 343 10*3/uL (130-400); RED BLOOD COUNT 3.23 10*6/uL (4.50-5.90); RED CELL DISTRI WIDTH 16.8 % (0-14.5); WHITE BLOOD COUNT 9.7 10*3/uL (4.8-10.8)
[2021-01-12 06:41] LABS: INTERNATIONAL NORM RATIO 2.4 (2.0-3.5)
[2021-01-12 06:49] LABS: ALBUMIN 3.4 gm/dl (3.1-4.5); ALKALINE PHOSPHATASE 93 U/L (45-117); BUN 19 mg/dl (7-24); CHLORIDE 99 mmol/L (98-107); CREATININE 1.09 mg/dL (0.70-1.30); POTASSIUM 4.2 mmol/L (3.5-5.1); SGOT/AST 36 IU/L (3-35); SGPT/ALT 61 U/L (12-78); SODIUM 131 mmol/L (136-145); TOTAL PROTEIN 7.2 gm/dL (6.4-8.2)
[2021-01-12 16:44] LABS: BASO % 0.5 % (0.0-1.0); EOS # 0.1 10*3/uL (0.0-0.4); EOS % 1.2 % (1.0-4.0); HEMATOCRIT 26.5 % (42.0-52.0); LYMPH # 1.6 10*3/uL (1.3-4.4); LYMPH % 18.6 % (27.0-41.0); MEAN CELL VOLUME 83.6 fl (80.0-94.0); MEAN CORPUSCULAR HGB 25.9 pg (27.0-31.0); MEAN CORPUSCULAR HGB CONC 30.9 g/dl (33.0-37.0); MEAN PLATELET VOLUME 9.2 fl (9.6-12.3); MONO # 1.1 10*3/uL (0.1-1.0); MONO % 12.7 % (3.0-9.0); NEUT # 5.5 10*3/uL (2.3-7.9); NEUT % 66.6 % (47.0-73.0); NUCLEATED RED BLOOD CELL 0.4 % (0.0-0.0); PLATELET COUNT AUTOMATED 264 10*3/uL (130-400); RED BLOOD COUNT 3.17 10*6/uL (4.50-5.90); RED CELL DISTRI WIDTH 16.4 % (0-14.5); WHITE BLOOD COUNT 8.3 10*3/uL (4.8-10.8)
[2021-01-13] VITALS (10 sets, daily range): BP systolic 91–150; BP diastolic 41–70
[2021-01-13 06:25] LABS: BASO # 0.1 10*3/uL (0.0-0.1); EOS # 0.2 10*3/uL (0.0-0.4); EOS % 2.8 % (1.0-4.0); LYMPH # 0.9 10*3/uL (1.3-4.4); MEAN CELL VOLUME 83.8 fl (80.0-94.0); MEAN CORPUSCULAR HGB 25.7 pg (27.0-31.0); MEAN CORPUSCULAR HGB CONC 30.7 g/dl (33.0-37.0); MEAN PLATELET VOLUME 9.4 fl (9.6-12.3); MONO # 0.9 10*3/uL (0.1-1.0); NEUT # 5.7 10*3/uL (2.3-7.9); NEUT % 72.8 % (47.0-73.0); PLATELET COUNT AUTOMATED 257 10*3/uL (130-400); RED BLOOD COUNT 3.34 10*6/uL (4.50-5.90); RED CELL DISTRI WIDTH 16.7 % (0-14.5); WHITE BLOOD COUNT 7.9 10*3/uL (4.8-10.8)
[2021-01-13 06:36] LABS: BUN 13 mg/dl (7-24); CHLORIDE 100 mmol/L (98-107); CREATININE 1.01 mg/dL (0.70-1.30); POTASSIUM 4.5 mmol/L (3.5-5.1); SODIUM 136 mmol/L (136-145)
[2021-01-14] VITALS: BP 117/56
[2021-01-14 06:21] LABS: BASO # 0.1 10*3/uL (0.0-0.1); BASO % 0.9 % (0.0-1.0); EOS # 0.3 10*3/uL (0.0-0.4); EOS % 2.8 % (1.0-4.0); HEMATOCRIT 28.8 % (42.0-52.0); LYMPH % 11.1 % (27.0-41.0); MEAN CORPUSCULAR HGB 26.3 pg (27.0-31.0); MEAN CORPUSCULAR HGB CONC 30.9 g/dl (33.0-37.0); MEAN PLATELET VOLUME 9.4 fl (9.6-12.3); MONO % 10.8 % (3.0-9.0); NEUT # 6.6 10*3/uL (2.3-7.9); NEUT % 73.8 % (47.0-73.0); NUCLEATED RED BLOOD CELL 0.3 % (0.0-0.0); PLATELET COUNT AUTOMATED 314 10*3/uL (130-400); RED BLOOD COUNT 3.39 10*6/uL (4.50-5.90); RED CELL DISTRI WIDTH 17.1 % (0-14.5)
[2021-01-14 06:24] LABS: ALBUMIN 3.4 gm/dl (3.1-4.5); ALKALINE PHOSPHATASE 97 U/L (45-117); BUN 14 mg/dl (7-24); CHLORIDE 99 mmol/L (98-107); CREATININE 0.96 mg/dL (0.70-1.30); POTASSIUM 3.9 mmol/L (3.5-5.1); SGOT/AST 49 IU/L (3-35); SGPT/ALT 67 U/L (12-78); SODIUM 133 mmol/L (136-145); TOTAL PROTEIN 7.1 gm/dL (6.4-8.2)
[2021-01-14 08:00] VITALS: BP 129/57
[2021-01-14] MEDS ORDERED: METOPROLOL SUCC25 M2 PO (14:16)
[2021-01-14] MEDS ORDERED: CARAFATE1 G1 PO (14:17)
[2021-01-14] MEDS ORDERED: ZITHROMAX250 MG PO (14:18)
[2021-01-14 14:51] LABS: INTERNATIONAL NORM RATIO 1.3 (2.0-3.5)
[2021-01-14 16:00] VITALS: BP 100/57
[2021-01-14 20:00] VITALS: BP 102/46
[2021-01-15] VITALS: BP 107/45
[2021-01-15 08:00] VITALS: BP 152/137
[2021-01-15 09:02] LABS: BASO # 0.1 10*3/uL (0.0-0.1); BASO % 0.7 % (0.0-1.0); EOS # 0.3 10*3/uL (0.0-0.4); EOS % 2.8 % (1.0-4.0); HEMATOCRIT 28.6 % (42.0-52.0); LYMPH # 0.7 10*3/uL (1.3-4.4); LYMPH % 8.2 % (27.0-41.0); MEAN CELL VOLUME 84.9 fl (80.0-94.0); MEAN CORPUSCULAR HGB 25.8 pg (27.0-31.0); MEAN CORPUSCULAR HGB CONC 30.4 g/dl (33.0-37.0); MONO # 0.9 10*3/uL (0.1-1.0); MONO % 9.7 % (3.0-9.0); NEUT % 78.2 % (47.0-73.0); PLATELET COUNT AUTOMATED 254 10*3/uL (130-400); RED BLOOD COUNT 3.37 10*6/uL (4.50-5.90); RED CELL DISTRI WIDTH 17.3 % (0-14.5)
[2021-01-15 09:12] LABS: INTERNATIONAL NORM RATIO 1.2 (2.0-3.5)
[2021-01-15 09:15] LABS: BUN 18 mg/dl (7-24); CHLORIDE 97 mmol/L (98-107); CREATININE 0.96 mg/dL (0.70-1.30); SODIUM 132 mmol/L (136-145)
[2021-01-15 12:00] VITALS: BP 150/97
[2021-01-15 16:00] VITALS: BP 86/54
[2021-01-15 20:00] VITALS: BP 98/57
[2021-01-16] VITALS: BP 125/54
[2021-01-16 06:37] LABS: CREATININE 1.46 mg/dL (0.70-1.30); POTASSIUM 4.7 mmol/L (3.5-5.1)
[2021-01-16 06:38] LABS: BASO # 0.1 10*3/uL (0.0-0.1); BASO % 1.1 % (0.0-1.0); EOS # 0.4 10*3/uL (0.0-0.4); EOS % 4.2 % (1.0-4.0); HEMATOCRIT 27.6 % (42.0-52.0); LYMPH # 0.9 10*3/uL (1.3-4.4); LYMPH % 10.3 % (27.0-41.0); MEAN CELL VOLUME 84.1 fl (80.0-94.0); MEAN CORPUSCULAR HGB 25.9 pg (27.0-31.0); MEAN CORPUSCULAR HGB CONC 30.8 g/dl (33.0-37.0); MEAN PLATELET VOLUME 9.8 fl (9.6-12.3); MONO % 11.7 % (3.0-9.0); NEUT # 6.2 10*3/uL (2.3-7.9); NEUT % 72.2 % (47.0-73.0); PLATELET COUNT AUTOMATED 295 10*3/uL (130-400); RED BLOOD COUNT 3.28 10*6/uL (4.50-5.90); RED CELL DISTRI WIDTH 17.4 % (0-14.5); WHITE BLOOD COUNT 8.5 10*3/uL (4.8-10.8)
[2021-01-16 08:00] VITALS: BP 100/60
[2021-01-16 11:29] VITALS: BP 135/70
[2021-01-16 16:00] VITALS: BP 109/61
[2021-01-16 20:00] VITALS: BP 110/85
[2021-01-17] VITALS: BP 94/57
[2021-01-17 06:38] LABS: BASO # 0.1 10*3/uL (0.0-0.1); BASO % 1.2 % (0.0-1.0); EOS # 0.5 10*3/uL (0.0-0.4); EOS % 5.9 % (1.0-4.0); HEMATOCRIT 28.1 % (42.0-52.0); LYMPH # 0.7 10*3/uL (1.3-4.4); LYMPH % 8.4 % (27.0-41.0); MEAN CELL VOLUME 82.9 fl (80.0-94.0); MEAN CORPUSCULAR HGB 25.4 pg (27.0-31.0); MEAN CORPUSCULAR HGB CONC 30.6 g/dl (33.0-37.0); MEAN PLATELET VOLUME 9.6 fl (9.6-12.3); MONO % 11.8 % (3.0-9.0); NEUT # 6.2 10*3/uL (2.3-7.9); NEUT % 72.1 % (47.0-73.0); PLATELET COUNT AUTOMATED 295 10*3/uL (130-400); RED BLOOD COUNT 3.39 10*6/uL (4.50-5.90); RED CELL DISTRI WIDTH 17.7 % (0-14.5); WHITE BLOOD COUNT 8.5 10*3/uL (4.8-10.8)
[2021-01-17 06:46] LABS: BUN 27 mg/dl (7-24); CHLORIDE 97 mmol/L (98-107); CREATININE 1.34 mg/dL (0.70-1.30); POTASSIUM 4.2 mmol/L (3.5-5.1); SODIUM 128 mmol/L (136-145)
[2021-01-17 08:00] VITALS: BP 128/80
[2021-01-17 12:00] VITALS: BP 118/63
[2021-01-17 16:00] VITALS: BP 128/72
[2021-01-17] MEDS ORDERED: FUROSEMIDE40 MG PO (16:05)
[2021-01-17] MEDS ORDERED: METOPROLOL SUCC50 M1 PO (16:08)
[2021-01-17] MEDS ORDERED: Imdur SA60 MG PO (16:08)
[2021-01-17] MEDS ORDERED: OMEPRAZOLE40 MG PO (16:08)
== END 2021-01-17 17:07 | disposition home or self-care (01) | DRG 377 ==
LOC: ED 08:22 → EDHOLD 09:37 → 5E 09:37
PROVIDERS: Emergency Medicine; Internal Medicine; Student in an Organized Health Care Education/Training Program; ADMIT Internal Medicine; ATTEND Internal Medicine
PROC: 30233N1 Transfusion of Nonautologous Red Blood Cells into Peripheral Vein, Percutaneous Approach (ICD-10-PCS; 2021-01-12)
PROC: 5A09357 Assistance with Respiratory Ventilation, Less than 24 Consecutive Hours, Continuous Positive Airway Pressure (ICD-10-PCS; 2021-01-12)
PROC: 0DB68ZX Excision of Stomach, Via Natural or Artificial Opening Endoscopic, Diagnostic (ICD-10-PCS; principal; 2021-01-13)
PROC: 5A09357 Assistance with Respiratory Ventilation, Less than 24 Consecutive Hours, Continuous Positive Airway Pressure (ICD-10-PCS; 2021-01-13)
PROC: 5A09357 Assistance with Respiratory Ventilation, Less than 24 Consecutive Hours, Continuous Positive Airway Pressure (ICD-10-PCS; 2021-01-14)
PROC: 5A09357 Assistance with Respiratory Ventilation, Less than 24 Consecutive Hours, Continuous Positive Airway Pressure (ICD-10-PCS; 2021-01-17)
DX: K25.4 Chronic or unspecified gastric ulcer with hemorrhage (principal); J18.9 Pneumonia, unspecified organism; J96.01 Acute respiratory failure with hypoxia; I50.20 Unspecified systolic (congestive) heart failure; I24.8 Other forms of acute ischemic heart disease; N17.9 Acute kidney failure, unspecified; I85.00 Esophageal varices without bleeding; I48.0 Paroxysmal atrial fibrillation; I25.10 Atherosclerotic heart disease of native coronary artery without angina pectoris; F41.1 Generalized anxiety disorder; E78.5 Hyperlipidemia, unspecified; R79.1 Abnormal coagulation profile; E66.9 Obesity, unspecified; G47.33 Obstructive sleep apnea (adult) (pediatric); Z99.89 Dependence on other enabling machines and devices; I11.0 Hypertensive heart disease with heart failure; E78.2 Mixed hyperlipidemia; D50.0 Iron deficiency anemia secondary to blood loss (chronic); K75.81 Nonalcoholic steatohepatitis (NASH); E11.9 Type 2 diabetes mellitus without complications; Z95.1 Presence of aortocoronary bypass graft; Z87.891 Personal history of nicotine dependence; Z82.49 Family history of ischemic heart disease and other diseases of the circulatory system; Z79.01 Long term (current) use of anticoagulants; Z79.84 Long term (current) use of oral hypoglycemic drugs; Z79.82 Long term (current) use of aspirin; Z79.51 Long term (current) use of inhaled steroids; Z79.899 Other long term (current) drug therapy; Z68.33 Body mass index [BMI] 33.0-33.9, adult

== ENCOUNTER → 2021-02-10 | Outpatient (CLI) | payer OTHER ==
[~2021-02-10] MED LIST changes: +CARAFATE1 G1 PO; +CETIRIZINE10 MG PO; +FUROSEMIDE40 MG PO; +IMDUR SA30 MG PO; +Imdur SA60 MG PO; +LOSARTAN-HCTZ1 EAC1 PO; +METFORMIN HYD1000 MG PO; +METOPROLOL SUCC25 M2 PO; +METOPROLOL SUCC50 M1 PO; +OMEPRAZOLE40 MG PO; +PROAIR DIGIHAL90 MCG IH; +WARFARIN SODIUM4 MG PO; +WARFARIN SODIUM6 MG PO; +ZITHROMAX250 MG PO
== END | disposition home or self-care (01) ==
LOC: CARD 02:16
PROVIDERS: ATTEND Internal Medicine Cardiovascular Disease
DX: M79.604 Pain in right leg (principal)

== ENCOUNTER → 2021-02-19 | Outpatient (CLI) | payer OTHER | END | disposition home or self-care (01) | LOC: CARD 09:30 | PROVIDERS: ATTEND Internal Medicine Cardiovascular Disease | DX: I34.0 Nonrheumatic mitral (valve) insufficiency (principal); I25.5 Ischemic cardiomyopathy ==

== ENCOUNTER → 2021-04-04 | Outpatient (CLI) | payer MEDICARE ==
[2021-04-04 10:12] LABS: INTERNATIONAL NORM RATIO 3.4 (2.0-3.5)
[2021-04-04 10:16] LABS: BUN 17 mg/dl (7-24); CHLORIDE 107 mmol/L (98-107); CREATININE 0.95 mg/dL (0.70-1.30); POTASSIUM 4.3 mmol/L (3.5-5.1); SODIUM 137 mmol/L (136-145)
== END | disposition home or self-care (01) ==
LOC: LAB 09:31
PROVIDERS: ATTEND Internal Medicine
DX: I48.0 Paroxysmal atrial fibrillation (principal); I48.91 Unspecified atrial fibrillation

== ENCOUNTER → 2021-07-16 | Outpatient (CLI) | payer OTHER | END | disposition home or self-care (01) | LOC: CARD 07:21 | PROVIDERS: ATTEND Internal Medicine | DX: I08.0 Rheumatic disorders of both mitral and aortic valves (principal); I25.5 Ischemic cardiomyopathy ==

== ENCOUNTER → 2022-07-17 | Outpatient (CLI) | payer OTHER ==
[~2022-07-17] MED LIST changes: +ELIQUIS5 M1 PO; +ENTRESTO 49 MG1 EACH PO; +PEPCID20 MG PO
== END | disposition home or self-care (01) ==
LOC: CARD 01:00
PROVIDERS: ATTEND Internal Medicine
DX: I25.89 Other forms of chronic ischemic heart disease (principal); R94.39 Abnormal result of other cardiovascular function study; I25.118 Atherosclerotic heart disease of native coronary artery with other forms of angina pectoris